=== PATIENT | female | born 2005 | race Caucasian/White ===

== ENCOUNTER 2025-03-02 14:24 | Outpatient (CLI) | payer BC, MEDICAID, SELFPAY ==
--- NOTE | 2025-03-02 16:05 | W.PM.LAC.MC ---
Consult Note - Mom Date of Visit Date of visit: 03/02/25 Reason for consultation: Assistance Needed Visit Code: Visit Patient's Information Phone number: [phone] : 1 Para: 1 Work Plans: return to work at some point, not sure when Delivery Information Delivery type: Vaginal Gestational Age: 40 Gestational Weight For Age: AGA Weight: 4.167 kg Discharge Weight: 3.941 kg Percentage weight loss: 5.5 Baby's Information Baby's Age at Visit: 7 days Baby's Provider or Clinic: [facility] Jaundice: No Past Experience Past Experience: No Current Frequency of Day Feedings: q2-3 hrs Frequency of Night Feedings: 4-6 hr stretch, very sleepy at night and hard to wake up Both Breasts: No Suck: strong Latch: shallow, painful Length of Time: 20-25 min Goals: 1-2 years Pumping Pumping: Yes Quantity Pumped: 4-5 oz Supplementing EBM Supplement: Yes (1.5-2 oz bottles occasionally) Formula Supplement: No Baby Elimination Number of Wet Diapers a Day: ea feeding Number of BM a Day: 6-8/day; [id number] Breast/Nipple Condition Breast Information: Breasts are symmetrical with rounded lower quadrants, intramammary distance is less than 1.5 inches. No erythema. Nipples are supple, everted prior to feeding. Breast Shape: Round and Firm Engorgement: No Maternal Nipple Condition - Left: Common Nipple Maternal Nipple Condition - Right: Common Nipple Sore Nipples: Yes Interventions for Sore Nipples: Soothies/Hydrogel Pads Baby Assessment Skin: Normal Tongue/frenulum: Normal/elastic Palate: Average Lips: Relaxed and Symmetrical Jaw Alignment: Symmetrical Mucosa: [place], moist Onsite Observation Pre-Feed weight: 3.986 kg Post-Feed weight: 4.024 kg Milk Transferred (mL): 38 Position: Football Attachment/latch-on achieved: With difficulty (to get a deep latch) Suck pattern: Suck burst and normal rest Swallow: Audible, consistent and Gulping (some when he gets on deeply) Behavior following feed: Alert, content Pre-Nursing Left Nipple: Within Normal Limits Pre-Nursing Right Nipple: Within Normal Limits Post-Nursing Left Nipple: Creased/Beveled (slight) Post-Nursing Right Nipple: Creased/Beveled (slight) Assessments/Interventions Assessments/Interventions: Jose G latched to mom's LEFT breast, latched multiple times to get a deep latch and stayed nursing for 13 minutes. Transferred 20 ml of milk before he came off on his own Jose G then latched to mom's RIGHT breast, latched shallowly and needed relatching again, and nursed for another 8 minutes. Transferred 18 ml of milk. Milk volume transferred: 38 ml and was content He was awakened for feeding at 2.5 hrs so this may not be the most indicative of a feeding Rebeccae does not open wide with tongue down for latching, more of a tongue sucking motion Suck exercises given to help encourage wide open mouth prior to bringing baby to the breast in addition to exercises they are already doing (guppy pose, figure 8 with hips, jaw massage) Education provided: Early feeding cues to maximize timing of latching, Asymmetric latch technique for wide/deep latch to increase milk, Transfer for baby and increase comfort for mom, Supply/demand nature of milk supply, Need for frequent stimulation/milk removal, Sore nipple treatment options, Pumping for milk management and Milk collection, storage Handouts Provided: Craniosacral therapist in [facility] as requested (Marycruz La) Feeding Plan: Breastfeed for 10-15 min on each breast, listening for active swallowing. Offer both breasts at each feeding for increase in milk intake, 10-15 min ea side vs 20-25 min on just one breast Discussed tips to help keep him awake and engaged in feeding and breast compression to increase milk transferred. Recommend wake baby every 3 hrs for feeding, even in the night, until he is back to birthweight. If he is too sleepy for BF at night, mom to pump and offer bottle to be sure he's not missing a feeding until he is back to birthweight. Follow-Up Suggested follow up: Appointment in 1 week Recommend baby be seen by provider for:: has clinic appt tomorrow 03/03/25 for weight check Time Spent Time spent with patient (min): 75
== END 2025-03-02 14:25 | disposition home or self-care (01) ==
PROVIDERS: Visit Provider Obstetrics & Gynecology
DX: Z39.1 Encounter for care and examination of lactating mother (principal)
CPT/HCPCS: G0463

== ENCOUNTER 2025-03-10 13:07 | Outpatient (CLI) | payer BC, MEDICAID, SELFPAY ==
--- NOTE | 2025-03-10 14:06 | W.PM.LAC.MF ---
Follow-Up Note: Mom Date of visit Date of visit: 03/10/25 Reason for consultation: Assistance Needed (follow up) Visit Code: Visit Delivery Information Delivery type: Vaginal Gestational Age: 40 Weight: 4.167 kg Last Weight: 3.986 kg Baby's Information Baby's name: Adriel Baby's Age at Visit: 15 days Baby's Provider or Clinic: [facility] Current Frequency of Day Feedings: every 2-3 hrs Frequency of Night Feedings: 4hr stretch x1, then every 2-3 Both Breasts: Yes (usually) Suck: strong Latch: sometimes painful, refusing the left side sometimes Length of Time: 10-12 minutes Pumping Pumping: Yes Quantity Pumped: get 5-7 oz 1-2x/day Supplementing EBM Supplement: Yes (will take an occasional bottle of 3-4 oz) Formula Supplement: No Baby Elimination Number of Wet Diapers a Day: ea feeding Number of BM a Day: 6+/day Breast/Nipple Assessment Breast/Nipple Assessment: Breasts are symmetrical with rounded lower quadrants, intramammary distance is less than 1.5 inches. No erythema. Nipples are supple, everted prior to feeding. Breast Shape: Round Engorgement: No Maternal Nipple Condition - Left: Common Nipple Maternal Nipple Condition - Right: Common Nipple Sore Nipples: No Onsite Observation Pre-feed weight: 4.217 kg (gain of 231 gms in 8 days) Post-Feed weight: 4.254 kg Milk Transferred (mL): 40 Pre-Nursing Left Nipple: Within Normal Limits Pre-Nursing Right Nipple: Within Normal Limits Post-Nursing Left Nipple: Within Normal Limits Assessments/Interventions Assessments/Interventions: Overall baby is feeding well; however over the last few days mom reports he is pushing her nipple out of his mouth more often and struggling to keep him on. No nipple pain, he's just not feeding as well. Gets a bottle maybe once a day. Babe initially fussy at the LEFT breast, popping on and off the breast as mom tried to latch in cradle hold. Mom shifted her position, put baby in cross cradle hold and moved him down nose across from nipple and he latched well and moved quickly into rhythmic suckling. Worked with mom on her hand positioning to allow a deeper latch as her fingers were very near her nipple; had her place them further back on her areola. Mom verbalized this was a better latch than she has had in a few days. He was offered the RIGHT breast and declined, no interest in feeding, laying peacefully in mother's arms. He had just fed 1.5 hrs prior to this for 11-12 minutes on mom's RIGHT breast. Discussed the deeper latch may help prevent him from trying to push her nipple out of his mouth as he did well staying latched here with the deeper latch. Discussed continuing to offer both breasts at each feeding, even if he needs a 5-10 minutes between sides. Education provided: Asymmetric latch technique for wide/deep latch to increase milk, Transfer for baby and increase comfort for mom, Supply/demand nature of milk supply, Need for frequent stimulation/milk removal, Alternative feeding methods (SNS, cup, finger feeding, bottling) and Pumping for milk management Follow-Up Suggested follow up: Appointment as needed Time Spent Time spent with patient (min): 60
== END 2025-03-10 13:08 | disposition home or self-care (01) ==
LOC: OB LAC 13:08
PROVIDERS: Visit Provider Obstetrics & Gynecology
DX: Z39.1 Encounter for care and examination of lactating mother (principal)
CPT/HCPCS: G0463

== ENCOUNTER 2025-03-27 05:56 | Emergency (ER) | payer BC, MEDICAID, SELFPAY ==
--- OUTSIDE RECORDS SUMMARY | 2025-03-04 03:00 | XMS_ITS ---
Author Organization [facility] Address [address] [place], [place] [phone] Care Team Providers Care Ota Name Role Phone Migration, Provider Unavailable Unavailable REASON FOR VISIT EMR-Ahsan Encounters Encounter Location Date Provider Diagnosis [facility] [address] [place], [place] [phone] 03/04/2025 Provider Migration Plan Of Treatment No Information Progress Notes * ASHLYN HAMMONDDOB:2005 ( 19 yo F)Acc No.[id number]:03/04/2025 Patient:?ASHLYN HAMMOND :2005???Age:19 Y???Sex:FemalePhone:[phone] Address:[facility] [address] [place], [address] Subjective: * Chief Complaints: * E MR-Ahsan * * Date:?
--- OUTSIDE RECORDS SUMMARY | 2025-03-05 03:00 | XMS_ITS ---
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 Name Role Phone Migration, Provider Unavailable Unavailable Allergies No Known Allergies REASON FOR VISIT [facility] Medications Medication SIG (Take, Route, Frequency, Duration) Notes Start Date End Date Status Naproxen 500 MG Tablet Take 1 pill by mouth BID X 1 Month (30d) Oral 12/09/2021ctive Social History Social History Additional DetailsCategorySocial InfoOptionsDetailsMigrated Social History Migrated Social History [Tobacco: Never smoker] Denies alcohol and rec drug use Shoe size: 8-8.5 Encounters Encounter Location Date Provider Diagnosis [facility] [address] [facility] [address] [place], [place] [phone] 03/05/2025 Provider Migration Plan Of Treatment No Information Progress Notes * ASHLYN HAMMONDDOB:2005 ( 19 yo F)Acc No.[id number]:03/05/2025 Patient:?ASHLYN HAMMOND :2005???Age:19 Y???Sex:FemalePhone:[phone] Address:[facility] [address] [place], [address] Subjective: * Chief Complaints: * E MR-Ahsan * Medical History: Patient denies any significant past medical history. Surgery: lip cut and tooth removal * Family History: M igrated Family History: : Patient denies any family history of CAD, HTN, DM, or CA. . * Social History: ???Migrated Social History:?Migrated Social History: [Tobacco: Never smoker]Denies alcohol and rec drug useShoe size: 8-8.5. * Medications: T akingNaproxen 500 MG Tablet Take 1 pill by mouth BID X 1 Month (30d) Oral Taking Naproxen 500 MG Tablet Take 1 pill by mouth BID X 1 Month (30d) Oral * Allergies: N .K.D.A. * * Date:?
[2025-03-27 05:57] VITALS: BP 117/79; PULSE 83; RESP 18; TEMP 35.8; O2SAT 98; BMI 36.9
--- OUTSIDE RECORDS SUMMARY | 2025-03-27 05:58 | XMS_ITS | Patient Health Record ---
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 Name Role Phone Migration, Provider Unavailable Unavailable Allergies No Known Allergies Reason For Referral No Information Medications Medication SIG (Take, Route, Frequency, Duration) Notes Start Date End Date Status Naproxen 500 MG Tablet Take 1 pill by mouth BID X 1 Month (30d) Oral 2Active Social History Social History Additional DetailsCategorySocial InfoOptionsDetailsMigrated Social History Migrated Social History [Tobacco: Never smoker] Denies alcohol and rec drug use Shoe size: 8-8.5 Problems Problem Type SNOMED Code ICD Code Onset Dates Problem Status W/U Status Risk Notes Problem Enthesopathy (96170622) Enthesop athy, unspecified (M77.9) 12/09/2021 Active confirmed ProblemPain in limb (76178404)Pain in right toe(s) (M79.674)12/09/2021ctive confirmed Encounters Encounter Location Date Provider Diagnosis [facility] [address] [facility] [address] [place], [place] [id number] 03/04/2025 Provider Migration [facility] [facility] [address] [place], [place] [id number]/23/2025Provider Migration Plan Of Treatment No Information Insurance Providers Payer Name Payer Address Payer Phone Subscriber Number Group Number Insured Name Patient Relationship to Insured Coverage Start Date Coverage End Date [employer] [place] [address] [place], [place] [id number] STEPHANYMichael Wuedward - patient is the [id number] 2021CBS [facility] [address] [place], [place] [id number], ALISESelf - patient is the [id number] 2021
--- OUTSIDE RECORDS SUMMARY | 2025-03-27 05:58 | XMS_ITS | Patient Health Record ---
Author Organization [facility] Address [address] [place], [place] [phone] Care Team Providers Care Loan Operations Manager Name Role Phone BROOKE BALES Primary Care Provider Reason For Referral No Information Medications Medication SIG (Take, Route, Frequency, Duration) Notes Start Date End Date Status Jdrramz-Cyylmo-Mehna Pertuss is 5-2.5-18.5 LF-MCG/0.5 as directed Intramuscular; Duration: 1 dose 10/28/2016Not-TakingMeningococcal A C Y&W-135 Conj -as directed Intramuscular 1 injection; Duration: 1 dose02/02/2017Not-TakingGardasil 9 -as directed Intramuscular one injection; Duration: 1 dose02/02/2017Not-TakingprednisoLONE 15 MG/5ML10 ml with food or milk in the morning Orally Once a day; Duration: 3 days 12/15/2017Not-TakingZithromax 200 MG/5ML12 ml x 1 day, then 6 ml QD x 4 days Orally Once a day; Duration: 6 days12/15/2017Not-TakingVoltaren 1 %apply 2 g to affected upper extremity joint area Transdermal 4 times daily02/04/2018Active Clindamycin Phosphate 1 %1 application to affected area after washing Externally Once a day; Duration: 14 days02/04/2018Active Problems Problem Type SNOMED Code ICD Code Onset Dates Problem Status W/U Status Risk Notes Problem Cough (71205945) Cough (R05) ActiveconfirmedProblemLipoprotein deficiency disorder (387942667)Low HDL (under 40) (E78.6)ActiveconfirmedProblemEnlargement of thyroid (3713123)Enlargement of thyroid (E04.9)ActiveconfirmedProblemDegeneration disease of medial meniscus of left knee (M23.304)Activeconfirmed Plan Of Treatment Pending Test Test Name Order Date MRI KNEE WO LT 02/22/2018 Urine Culture,Comprehensive 05/01/2016 Urinalysis, Complete 05/01/2016 CBC With Differential/Platelet 7 Lipid Panel 05/01/2016 Comp. Metabolic Panel (14) 05/01/2016 TSH Rfx on Abnormal to Free T4 7 Future Test Test Name Order Date Lipid Panel 11/03/2016 CMP (Complete Metabolic Panel (14)) 10/12 Insurance Providers Payer Name Payer Address Payer Phone Subscriber Number Group Number Insured Name Patient Relationship to Insured Coverage Start Date Coverage End Date [facility] [address] [place] [address] [phone] [id number] Luis Olivares 4 Medical (General) History Surgical History Surgery Date(Month/Year) None
--- OUTSIDE RECORDS SUMMARY | 2025-03-27 05:58 | XMS_ITS | Clinical Summary ---
Author Organization [facility] Address [address] [place] [id number] Care Team Providers Care Marketing Automation Specialist Name Role Phone Pcp, No Primary Care Provider Unavailabl e Allergies No known active allergies Medications MedicationSigDispense QuantityRefillsLast FilledStart DateEnd DateStatus 25/iron fum/folic/dha (-1 ORAL) Take by mouth.Active Breast Pump Purchase Indications:, unspecified gestational age (HC)Electric breast pump for home use. Reason for need: breast feeding. Length of need: 99 months (lifetime use) 1 Each 5Active ibuprofen (ADVIL; MOTRIN) 600 mg tablet Indications:Vaginal delivery (HC)Take 1 Tablet (600 mg) by mouth every 6 hours. Maximum of 3200 mg in 24 hours. 30 Tablet 5Active Additional Information Patient not taking.Reported on 03/10/2025 Active Problems ProblemNoted DateDiagnosed DateVaginal marexgrc60/13/2024Fpgjcpdah47/22/2025 Overview (02/21/2025): G1 FOB: Masoud Dating criteria: LMP c/w FTU Rh: + Ab: neg Rubella: imm Aneuploidy screening: declines Carrier screening: declines Anatomy Scan: wnl, placenta anterior, EFW 89%tile -> f/u growth US ordered 1 hr GTT: 110, passed Tdap: s/p 11/29 Flu: s/p 01/17 RSV: s/p 10 Presentation at 36 wks: cephalic GBS: neg PPBC: unsure Last SVE 1/30/-3 Delivery planning: IOL scheduled for 11 PM (rescheduled from 02/26 PM) issues: Teen - social work consult placed but declines their referral - it the patient reconsiders, can either place an Amb Consult to Care Management Service #[phone] or call Care Management Intake at [phone]. macrosomia- EFW at 30w and 36w 98%tile Adjustment reaction with anxiety and depression- following with mental health sr solutions consultant BMI 31 (185lb)- rec 11-20 lb weight gain. Due to addit'l RF rec LDASA Resolved Problems ProblemNoted DateDiagnosed DateResolved DateShoulder dystocia during labor and wljekbyr87 Encounters DateTypeDepartmentCare CqwaKvzsvbosfyd18/28/2025 10:05 AM CSTOffice Visit [facility] [address] [place] [address] Mckinley Bernal MD Wrist Pain/problem (Two weeks before having baby both middle fingers would lock up-now since havingbaby her right wrist hurts all the time with any movement using thumb)03/10/20254336Pxktqv94/14/2288Daabig17/13/2025 8:32 AM CSTAnesthesia Event [facility] [address] [place] [address] Lb Phillips MD 02/22/2025 7:28 PM TOP CLEANER - 02/25/2025 12:58 PM CSTHospital Encounter [facility] [address] [place] [address] Consuelo Newton DO Thorson, Ashley Ellen, MD Vaginal delivery (HC) (Primary Dx) Discharge Disposition: Home Self Care02/22/20258029Xgsehc06/11/2025 3:15 PM CSTOB Encounter [facility] [address] [place] [address] Consuelo Newton DO Care (39w5d, no concerns)02/21/20250396Wqdqpl48/07/1722Xpdhbh74/04/2025 3:15 PM CSTOB Encounter [address] [place] [address] Consuelo Newton, DO Care (38w5d, no concerns, wants to discuss her induction date) 02/14/20251862Rvhfdn52/02/2025 12:06 AM CDT - 02/12/2025 1:30 AM CDTHospital Encounter [facility] [address] [place] [address] Radha Tong MD Discharge Disposition: Home Self Care02/12/20251170Anqcwh64/31/2025Telephone [address] [place] [address] Consuelo Newton, DO Questions (Induction )02/09/20259998Ytddai31/28/2025 3:15 PM CDTOB Encounter [address] [place] [address] Consuelo Newton, DO Care (37w5d, no concerns)02/07/20259912Ksxjqo44/23/0048Ozgdrg53/21/2025 3:15 PM CDTOB Encounter [address] [address] Consuelo Newton, DO Care (36w5d, no concerns)01/31/20257617Akeghm65/19/5772Uzbdwm00/16/2025 3:30 PM CDT - 01/26/2025 11:59 PM CDTHospital Encounter [facility] [address] [place] [address] Consuelo Newton, DO macrosomia during , antepartum, single or unspecified fetus (HC) 01/26/20259140Pcuaua27/15/2025 9:55 AM CDTTelemedicine [facility] [address] [place] [address] Leslie Macias LICSW Individual Therapy; Telehealth; [facility] Plan01/21/20256485Apwcig81/07/2025 3:30 PM CDTOB Encounter [facility] [address] [place] [address] Consuelo Newton, Care (34w5d, no concerns)01/16/2025 10:16 PM CDT - 01/16/2025 11:32 PM CDTHospital Encounter [facility] [address] [place] [address] Trever Peña MD Discharge Disposition: Home Self Care01/16/20256345Trptws70/06/2025Nurse Triage [facility] [address] [place] [address] Consuelo Newton, DO (Decreased movement)01/10/2025 3:15 PM CDTOB Encounter [facility] [address] [place] [address] Consuelo Newton, DO Care (33w5d, still having some of the lower pains, can never get the swelling out of her ankles)01/09/20253869Vlslpl98/17/2025 9:00 AM CDTTelemedicine [place] [id number] [place] [address] Leslie Macias LICSW Mental Health Intake; Kkkijxxuyb84/16/2025 3:15 PM CDTOB Encounter [facility] [address] [place] [address] Consuelo Newton, DO Care (31w5d, pain in her lower abdomen all day when she moves) 12/27/2024Travelfrom Last 3 Months Immunizations ImmunizationAdministration DatesNext DueCOVID-19 VACCINE SPIKEVAX (MODERNA 50MCG/0.5ML) 12YO+ PFS04/14/2024INFLUENZA, IIV3 PF (AGE >= 6 MO)01/17/2025 Influenza, CCIIV3 (Age >=6 MO) (Egg Free)04/14/2024RSV, Bivalent Vaccine Reconstituted (Abrysvo 120MCG/0.5mL)01/17/2025Tdap11/29/2024 Family History Medical HistoryRelationNameCommentsNo Known ProblemsFatherpre diabetesMother RelationNameStatusCommentsFatherAliveMotherAlive Social History Tobacco UseTypesPacks/DayYears UsedDateSmoking Tobacco: NeverPassive Smoke Exposure: CurrentSmokeless Tobacco: Never Tobacco Cessation:Counseling Given: Not Answered Alcohol UseStandard Drinks/WeekCommentsNever0 (1 standard drink = 0.6 oz pure alcohol)PHQ-2AnswerDate RecordedPHQ-2 TOTAL [id number] Connections AnswerDate RecordedDo you often feel lonely or isolated from those around you?0 02/22/2025lcohol UseAnswerDate RecordedHow often do you have a drink containing alcohol?How many drinks containing alcohol do you have on a typical day when you are drinking?How often do you have five or more drinks on one occasion?Financial Resource StrainAnswerDate Recorded Difficulty of Paying Living Xujnukey280/12/2025Difficulty of Paying Living ExpensesNot on file02/22/2025Food InsecurityAnswerDate RecordedDo you worry your food will run out before you are able to buy more?Transportation NeedsAnswerDate RecordedDoes lack of transportation keep you from medical appointments?Does lack of transportation keep you from work, meetings or getting things that you need?Housing StabilityAnswerDate Recorded What is your housing situation today?Interpersonal SafetyAnswerDate RecordedAre you being hit, kicked, pushed or yelled at (see row info)?No 02/23/2025Interpersonal Safety Abuse 12 - 18Not on file02/23/2025Interpersonal Safety Ambulatory VulnerabilityNot on file02/23/2025UtilitiesAnswerDate Recorded Do you have trouble paying for utilities (for example, heat, electricity, water, phone)?CommentsNoSex and Gender InformationValueDate Recorded Sex Assigned at BirthNot on fileLegal IuwEgoazn54/12/2024 3:05 PM CDTGender IdentityNot on fileSexual OrientationNot on file Obstetrics History GravidaParaTermPretermABIABSABEctopicMultipleLivingLive [id number] GATotal LaborLabor/2nd/6uiYwrfjjHvmUkzkPdvtEHSKcpG0Q7YclpOdcu76/13/2270Psxp21g8w 0h 04m0h 04m4.17 kg (9 lb 3.1 oz)MVag-KwjggYgdzatniJlzwhp00Xi Consuelo Perez, DOComplications:Shoulder DystociaDelivery Location:Hospital ([facility]) Summary Episode DatesNumber of FetusesEstimated Date of Xsvqunrd21/22/2025 - Present (03/27/2025) (set by Monika Eastman RN on 08/02/2024 based on Alternate HOWARD Entry)Based OnEDDGA DiffLast Menstrual Period on 05/19/2024 02/23/2025SameUltrasound on 5104/23/2024+2dGA:80p9qVvnavxgks HOWARD Entry 02/23/2025WorkingPregnancy:SingletonFetal sex:MaleSupport person:Masoud Berman Delivery PlansPost-Delivery PlansPlanned delivery method:VaginalFeeding intentions:Breast MilkPlanned anesthesia:EpiduralCircumcision requested:Provider PerformedAcceptable blood products:AllPregravid WeightHeightTWG (As of 03/27/2025)Pregravid BMI1.625 m (5' 3.98) Date GA Fund Present FHR Mvmt BP Weight Edema Alb Glu Ket Dil/ Eff/Sta 5 11w0d Inpatient data not displayed here. See encounter summary. 5 19w2d Inpatient data not displayed here. See encounter summary. 5 21w4d Inpatient data not displayed here. See encounter summary. 5 26w1d Inpatient data not displayed here. See encounter summary. 5 29w4d Inpatient data not displayed here. See encounter summary. 5 30w5d Inpatient data not displayed here. See encounter summary. 5 34w4d Inpatient data not displayed here. See encounter summary. 5 36w0d Inpatient data not displayed here. See encounter summary. 5 38w3d Inpatient data not displayed here. See encounter summary. 5 40w0d Inpatient data not displayed here. See encounter summary. 5 40w0d Inpatient data not displayed here. See encounter summary. 5 40w0d Inpatient data not displayed here. See encounter summary. Notes Progress Notes - Hospital En counter - 02/25/2025 - GA:40w0d 02/25/2025 - 40w0d - Kojo Lopez RN Vaginal Discharge Data: Vital signs stable, afebrile and assessments within normal limits. Tolerating activity and diet. Voiding without difficulty. Pain within patient determined acceptable limits. Perineum appears to be healing well. Positive attachment behaviors observed. Discharge outcomes on the care plan met. Action: Review of care plan, teaching sheet and discharge instructions done with patient. Response: Discharged at 1258 via Ambulatory CLEANER 02/25/2025 - 40w0d - Edita Palacios RN Problem: PAIN/COMFORT Goal: PATIENT'S PAIN IS </= STATED ACCEPTABLE COMFORT GOAL. Outcome: Progressing Note: Pt pain well controlled with scheduled medications. Pt opting to not take as scheduled and will ask for it when needed. Pt also using tucks and ice packs for perineum. Pt vital signs within normal range. Pt fundus firm and bleeding scant. Pt ambulating and voiding without difficulty. CLEANER 02/24/2025 - 40w0asad - Jam Avendaño MD Day 1: Vaginal Delivery Date: 02/24/2025 Subjective: Kamini Hammond is overall doing well, no acute complaints. Lochia light. Pain is well controlled. Tolerating a normal diet. Denies headache, vision changes, chest pain, palpitations, lightheadedness. Objective: BP 112/66 Pulse (!) 102 Temp 99 ??F (37.2 ??C) Resp 16 Wt 104.8 kg (231 lb 1.9 oz) LMP 05/19/2024 SpO2 97% Unknown General: NAD, A&O Abdomen: +BS, soft, nontender to palpation, fundus firm below the umbilicus Extremities: warm, nontender Assessment/Plan: Kamini Hammond is a 19 y.o. day #1 s/p care - doing well - Planned discharge tomorrow Jam Avendaño MD CLEANER 02/23/2025 - 40w0Consuelo Nina DO Patient reports contractions are 5/10 in intensity. Not yet ready for epidural. SVE 3.5/80/-2. AROMperformed with scant amount of clear fluid. FHT Category 1. Will monitor contractions and start Pitocin if needed. Consuelo Newton DO 02/23/25 0740 Addendum: Patient s/p epidural placement. FSE placed as decelerations noted. Decels initially appeared to be early decels. However now difficult to fully assess FHT as could be having tachycardia with recurrent variable decelerations or accelerations with marked variability. Tachysystole noted and will give 1 dose of IV Terbutaline. SVE 6/80/-1. We did discuss potential need for and patient is agreeable if necessary. Consuelo Newton DO 02/23/2025 1000 Addendum: Contractions have decreased in frequency to q2-5 minutes. FHT are now Category 1. Patient is comfortable with epidural and is sleeping now. status is reassuring. Consuelo Newton DO 02/23/25 1115 Addendum: Patient is now complete and pushing. Consuelo Newton DO 02/23/25 1700 CLEANER CLEANER CLEANER CLEANER 02/23/2025 - 40w0d - Joyce Cifuentes RN Kamini worrell 39 6/7 presents to the center at 1928 for a scheduled IOL. Pt states +fm, no LOF, or vaginal bleeding. States she has been cx. aware pt is here. Joyce Cifuentes RN .................... 02/22/2025 8:41 PM CLEANER Progress Notes - OB Encounte r - 02/21/2025 - GA:39w5d 02/21/2025 - 39w5d - Consuelo Pascual DO Care Visit Subjective Care (39w5d, no concerns) HISTORY OF PRESENT ILLNESS Patient is a 19 y.o. F at 39w5d here for return OB visit. She is doing well today. She denies any vaginal bleeding, loss of fluid, or regular contractions. She notes good movement. desireslactation consult REVIEW OF SYSTEMS Obtained and is negative other than stated in the HPI. Objective PHYSICAL EXAMINATION Vitals: 02/21/25 1531 BP: 126/86 Cuff Site: Left Arm Position: Sitting Cuff Size: Adult Large Pulse: (!) 114 Weight: 104.8 kg (231 lb 1.6 oz) There is no height or weight on file to calculate BMI. General: No acute distress alert and oriented. Abdomen: Soft, gravid, nontender to palpation. Pelvic: SVE: 1.5//-3, membrane stripping performed FHR: 140s bpm Extremities: Warm, nontender, no edema. Assessment & Plan 1. , unspecified gestational age (HC) (Primary) G1 FOB: Masoud Dating criteria: LMP c/w FTU Rh: + Ab: neg Rubella: imm Aneuploidy screening: declines Carrier screening: declines Anatomy Scan: wnl, placenta anterior, EFW 89%tile -> f/u growth US ordered 1 hr GTT: 110, passed Tdap: s/p 8 Flu: s/p 10/7 RSV: s/p 10/7 Presentation at 36 wks: cephalic GBS: neg PPBC: unsure Last SVE 3 Delivery planning: IOL scheduled for 11/12 PM (rescheduled from 02/26 PM) - Patient is worried about breast-feeding after and request referral to decorator consultant. Referral placed today. -Membrane stripping performed today. - Reviewed induction of labor process. Reviewed this is an elective induction. Reviewed potential risks including risk of emergency . Induction of labor scheduled for tomorrow evening. issues: Teen - social work consult placed but declines their referral - it the patient reconsiders, can either place an Amb Consult to Care Management Service #[phone] or call Care Management Intake at [phone]. macrosomia- EFW at 30w and 36w 98%tile Adjustment reaction with anxiety and depression- following with mental health sr solutions consultant BMI 31 (185lb)- rec 11-20 lb weight gain. Due to addit'l RF rec LDASA Orders: - AMB REFERRAL TO SERVICES; Future RTC: Consuelo Newton DO CLEANER Progress Notes - OB Encounte r - 02/14/2025 - GA:38w5d 02/14/2025 - 38w5d - Consuelo Pascual DO Care Visit Subjective Care (38w5d, no concerns, wants to discuss her induction date) HISTORY OF PRESENT ILLNESS Patient is a 19 y.o. F at 38w5d here for return OB visit. She is doing well today. She denies any vaginal bleeding, loss of fluid, or contractions. She notes good movement. Patient was seen in OB triage 2 days for elevated BP at home. Took BP due to LE edema. BP at home 146/93 and 150/98. BP in triage normotensive. Patient denies headache, vision changes or upper abdominal pain. REVIEW OF SYSTEMS Obtained and is negative other than stated in the HPI. Objective PHYSICAL EXAMINATION Vitals: 02/14/25 1523 BP: 124/82 Cuff Site: Right Arm Position: Sitting Cuff Size: Adult Large Pulse: (!) 112 Weight: 104.1 kg (229 lb 6.4 oz) There is no height or weight on file to calculate BMI. General: No acute distress alert and oriented. Abdomen: Soft, gravid, nontender to palpation. Pelvic: 140/-3, membrane stripping attempted but difficult due to posterior cervix FHR: 150s bpm Extremities: Warm, nontender, trace b/l edema. Assessment & Plan 1. , unspecified gestational age (HC) (Primary) G1 FOB: Masoud Dating criteria: LMP c/w FTU Rh: + Ab: neg Rubella: imm Aneuploidy screening: declines Carrier screening: declines Anatomy Scan: wnl, placenta anterior, EFW 89%tile -> f/u growth US ordered 1 hr GTT: 110, passed Tdap: s/p 11/29 Flu: s/p 01/17 RSV: s/p 01/17 Presentation at 36 wks: cephalic GBS: neg PPBC: unsure - patient's IOL scheduled for 16 PM. She states today she desires to move this to 02/22/25 PM instead. L&D called and will try to accommodate this but will likely need additional staffing. Induction of labor orders placed. Will plan for cervical ripening overnight. On-call OB provider notified issues: Teen - social work consult placed but declines their referral - it the patient reconsiders, can either place an Amb Consult to Care Management Service #[phone] or call Care Management Intake at [phone]. macrosomia- EFW at 30w and 36w 98%tile Adjustment reaction with anxiety and depression- following with mental health sr solutions consultant BMI 31 (185lb)- rec 11-20 lb weight gain. Due to addit'l RF rec LDASA RTC: 1 week Consuelo Newton DO CLEANER Progress Notes - Hospital En counter - 02/12/2025 - GA:38w3d 02/12/2025 - 38w3d - Edita Viera RN Pt given verbal and discharge instructions, pt verbalized understanding and denied questions. Pt ambulated off of unit with belongings in hand accompanied by SO. 02/12/2025 - 38w3d - Eidta Palacios RN Dr Tong called and informed of pt arrival and concerns. Discussed EFM, pt vitals and pt did bring her blood pressure cuff for evaluation, cuff is meant for up to 42cm and pt arm measures 44 cm. Ptblood pressure with her cuff here is 118/80 and 124/80. Pt states she has felt some pains that may or may not be ctx, nothing she was timing. Pt noted to have 1 ctx while monitoring. Pt states she has an appointment on Thursday. Pt states no other concerns and pt feels comfortable going home. Per Dr Tong pt to discharge home and be educated on compression socks as well as avoiding prolonged periods of standing or sitting. 02/12/2025 - 38w3d - Edita Palacios RN Pt called at 2247 stating she was having increased swelling today that hasn't gotten better so she was checking her blood pressure at home. She reports 2 readings that were 140's/90's. Pt questioned and reviewed, no concerns for preeclampsia with prior visits. Pt states she had headaches a few times this week, none today, that got better with the medication she was given for them. Pt denies vision changes, chest pain, SOB or right sided upper abd pain. Pt states she has noticed some cramping/ctx here and there but nothing she is timing. Pt denies bleeding or leaking of fluid. Pt states she has been feeling baby move recently but unsure of earlier because she worked today. She states she is a [employer]INE [employer]. Pt advised that she could come in if she felt like she wanted to be evaluated otherwise she could stay home and monitor for now. Pt states she wants to come in to be checked out. Pt states she live in [place] and she will be here in about an hour. Pt instructed to bring her blood pressure cuff with for comparison. 0006 pt arrived with SO and ambulated to rm 208. Pt up to void and change into gown. Progress Notes - OB Encounte r - 02/07/2025 - GA:37w5d 02/07/2025 - 37w5d - Consuelo Pascual DO Care Visit Subjective Care (37w5d, no concerns) HISTORY OF PRESENT ILLNESS Patient is a 19 y.o. F at 37w5d here for return OB visit. She is doing well today. She denies any vaginal bleeding, loss of fluid, or regular contractions. She notes good movement. REVIEW OF SYSTEMS Obtained and is negative other than stated in the HPI. Objective PHYSICAL EXAMINATION Vitals: 02/07/25 1530 BP: 130/78 Cuff Site: Right Arm Position: Sitting Cuff Size: Adult Large Pulse: 82 Weight: 104.2 kg (229 lb 11.2 oz) There is no height or weight on file to calculate BMI. General: No acute distress alert and oriented. Abdomen: Soft, gravid, nontender to palpation. Pelvic: SVE 1/30/-3 FHR: 130s bpm Extremities: Warm, nontender, no edema. Assessment & Plan 1. , unspecified gestational age (HC) (Primary) FOB: Masoud Dating criteria: LMP c/w FTU Rh: + Ab: neg Rubella: imm Aneuploidy screening: declines Carrier screening: declines Anatomy Scan: wnl, placenta anterior, EFW 89%tile -> f/u growth US ordered 1 hr GTT: 110, passed Tdap: s/p 11/29 Flu: s/p 01/17 RSV: s/p 01/17 Presentation at 36 wks: cephalic GBS: neg PPBC: unsure Last SVE - Patient advised cervical exam unchanged today. -Patient still desires induction of labor but now states she desires a 40-week induction of labor instead of a 39-week induction of labor. Will request 11/16 p.m. and plan for cervical ripening - given 36w packet issues: Teen - social work consult placed but declines their referral - it the patient reconsiders, can either place an Amb Consult to Care Management Service #[phone] or call Care Management Intake at [phone]. macrosomia- EFW at 30w and 36w 98%tile Adjustment reaction with anxiety and depression- following with mental health sr solutions consultant BMI 31 (185lb)- rec 11-20 lb weight gain. Due to addit'l RF rec LDASA RTC: 1 week Consuelo Newton DO Progress Notes - OB Encounte r - 01/31/2025 - GA:36w5d 01/31/2025 - 36w5d - Consuelo Pascual DO Care Visit Subjective Care (36w5d, no concerns) HISTORY OF PRESENT ILLNESS Patient is a 19 y.o. F at 36w5d here for return OB visit. She is doing well today. She denies any vaginal bleeding, loss of fluid, or contractions. She notes good movement. REVIEW OF SYSTEMS Obtained and is negative other than stated in the HPI. Objective PHYSICAL EXAMINATION Vitals: 01/31/25 1533 BP: 118/72 Cuff Site: Right Arm Position: Sitting Cuff Size: Adult Large Pulse: (!) 108 Weight: 103.6 kg (228 lb 6.4 oz) There is no height or weight on file to calculate BMI. General: No acute distress alert and oriented. Abdomen: Soft, gravid, nontender to palpation. Pelvic: GBS obtained, SVE 05/12/3 FH: 130s cm Extremities: Warm, nontender, no edema. US OB FOLLOW UP ANY TRI SINGLE TA Narrative: For Patients: As a result of the Cures Act, medical imaging exams and procedure reports are released immediately into your electronic medical record. You may view this report before your referring provider. If you have questions, please contact your health care provider. INDICATION: Check growth TECHNIQUE: Ultrasound OB pelvis transabdominal. Real-time davila-scale imaging of the fetus was performed. COMPARISON: 12/20/2024 and 08/04/2024 FINDINGS: Sonographic imaging demonstrates a single living intrauterine gestation. Fetus demonstrates a regular cardiac rate of 140 beats per minute. Fetus has a cephalic orientation. The placenta lies anterior without evidence of placenta previa. Amniotic fluid volume appears normal. Single deepest verticalpocket: 7.4 cm. The composite ultrasound gestational age is calculated at 38 weeks 6 days with an estimated sonographic due date of 02/03/2025. The estimated weight is 3710 grams which lies at the 98%. The following biometric measurements were obtained: Biparietal diameter: 9.5 cm, 38 weeks 6 days,< 99 percentile. Head circumference: 33.8 cm, 38 weeks 6 days, 84th percentile. Abdominal circumference: 36.3 cm, 40 weeks 2 days, greater than 98 percentile. Femur length: 7.2 cm, 37 weeks 0 days, 69th percentile. Impression: 1. Current ultrasound dating 38 weeks 6 days, HOWARD 02/03/2025. weight is at the 98th percentile. 2. LMP 05/19/2024. Dating by LMP 36 weeks 6 days. Dictated by Skye Padilla MD @ 01/27/2025 7:46:50 AM (Electronically Signed) Assessment & Plan 1. , unspecified gestational age (HC) (Primary) G1 FOB: Masoud Dating criteria: LMP c/w FTU Rh: + Ab: neg Rubella: imm Aneuploidy screening: declines Carrier screening: declines Anatomy Scan: wnl, placenta anterior, EFW 89%tile -> f/u growth US ordered 1 hr GTT: 110, passed Tdap: s/p 11/29 Flu: s/p 01/17 RSV: s/p 01/17 Presentation at 36 wks: cephalic PPBC: unsure - GBS obtained today -Reviewed growth ultrasound showing persistent macrosomia - Labor precautions reviewed - Patient desires 39-40 week induction of labor. She will look at dates with partner and will discuss further at next visit. issues: Teen - social work consult placed but declines their referral macrosomia- EFW at 30w and 36w 98%tile Adjustment reaction with anxiety and depression- following with mental health sr solutions consultant Headache, resolved- Rx reglan Craving ice- iron studies and hb wnl BMI 31 (185lb)- rec 11-20 lb weight gain. Due to addit'l RF rec LDASA Orders: - VAGINAL/RECTAL OB STREP PCR; Future At next visit: schedule IOL RTC: 1 week Consuelo Newton DO Progress Notes - OB Encounte r - 01/17/2025 - GA:34w5d 01/17/2025 - 34w5d - Consuelo Pascual DO Care Visit Subjective Care (34w5d, no concerns) HISTORY OF PRESENT ILLNESS Patient is a 19 y.o. F at 34w5d here for return OB visit. She is doing well today. She denies any vaginal bleeding, loss of fluid, or contractions. She notes good movement. Was seen in triage yesterday for decreased FM; NST reactive. REVIEW OF SYSTEMS Obtained and is negative other than stated in the HPI. Objective PHYSICAL EXAMINATION Vitals: 01/17/25 1535 BP: 120/74 Cuff Site: Left Arm Position: Sitting Cuff Size: Adult Large Pulse: (!) 102 Weight: 102 kg (224 lb 14.4 oz) There is no height or weight on file to calculate BMI. General: No acute distress alert and oriented. Abdomen: Soft, gravid, nontender to palpation. FHR: 150s bpm Extremities: Warm, nontender, no edema. Assessment & Plan 1. , unspecified gestational age (HC) (Primary) G1 FOB: Masoud Dating criteria: LMP c/w FTU Rh: + Ab: neg Rubella: imm Aneuploidy screening: declines Carrier screening: declines Anatomy Scan: wnl, placenta anterior, EFW 89%tile -> f/u growth US ordered 1 hr GTT: 110, passed Tdap: s/p 11/29 PPBC: unsure - Agreeable to RSV and flu vaccines today -Growth ultrasound scheduled for next week -Reviewed expectations for next visit issues: Teen - social work consult placed but declines their referral - it the patient reconsiders, can either place an Amb Consult to Care Management Service #[phone] or call Care Management Intake at [phone]. macrosomia- EFW at 30w 98%tile Adjustment reaction with anxiety and depression- following with mental health sr solutions consultant Headache, resolved- Rx reglan Craving ice- iron studies and hb wnl BMI 31 (185lb)- rec 11-20 lb weight gain. Due to addit'l RF rec LDASA 2. Need for prophylactic vaccination and inoculation against influenza - FluLaval Single Dose Syringe FLU VACCINE =>6 MO PRESERV FREE TRIVALENT IIV3 IM [703600] 3. Need for RSV immunization - (Abrysvo) RSV vaccine 120mg/0.5mL Bivalent [[id number]] - for 50 yo+ or 32-36 weeks EGA At next visit: review growth US 01/26, GBS, SVE RTC: 2 weeks Consuelo Newton DO Progress Notes - Hospital En counter - 01/16/2025 - GA:34w4d 01/17/2025 - 34w5d - Radha Stewart, RN Kamini is a 19yo at 34w4d presents to Center from home with reports of decreased movement. Denies cramping, bleeding, or leaking of fluid. Last ate at 2014. Has felt a tiny kick >2hours ago; last felt baby was active last night. Today, patient did some light cleaning, walked through [employer], and took a nap. No strenuous activity. States she works in a [employer] and is on her feet for eight + hours; next shift is scheduled for tomorrow. 2314: Discussed patient and NST with Dr. Peña. Ok to discharge home. Patient has an appointment tomorrow afternoon with Dr. Parikh. Reviewed warning signs of when to return. Patient was given number to Center. Discharged to home at 2332. Radha Stewart RN .................... 01/16/2025 11:51 PM Progress Notes - OB Encounte r - 01/10/2025 - GA:33w5d 01/10/2025 - 33w5d - Consuelo Pascual DO Care Visit Subjective Care (33w5d, still having some of the lower pains, can never get the swelling out of her ankles) HISTORY OF PRESENT ILLNESS Patient is a 19 y.o. F at 33w5d here for return OB visit. She is doing well today. She denies any vaginal bleeding, loss of fluid, or contractions. She notes good movement. He reports occasional abdominal cramping/pelvic pain. Has been worse since she injured her hip with volleyball. Also complains of lower extremity swelling. Is wearing compression socks. REVIEW OF SYSTEMS Obtained and is negative other than stated in the HPI. Objective PHYSICAL EXAMINATION Vitals: 01/10/25 1533 BP: 116/70 Cuff Site: Right Arm Position: Sitting Cuff Size: Adult Large Pulse: 98 Weight: 101.8 kg (224 lb 8 oz) There is no height or weight on file to calculate BMI. General: No acute distress alert and oriented. Abdomen: Soft, gravid, nontender to palpation. FHR: 130s bpm Extremities: Warm, nontender, + 2 nonpitting edema, no erythema Assessment & Plan 1. , unspecified gestational age (HC) (Primary) G1 FOB: Masoud Dating criteria: LMP c/w FTU Rh: + Ab: neg Rubella: imm Aneuploidy screening: declines Carrier screening: declines Anatomy Scan: wnl, placenta anterior, EFW 89%tile -> f/u growth US ordered 1 hr GTT: 110, passed Tdap: s/p 11/29 PPBC: unsure - Edema consistent with edema of . Advised to buy tighter compression socks and to elevateher feet when able specially the end of the day. No evidence of DVT on exam. BP today WNL - growth US 01/26 issues: Teen - social work consult placed but declines their referral - it the patient reconsiders, can either place an Amb Consult to Care Management Service #[phone] or call Care Management Intake at [phone]. macrosomia- EFW at 30w 98%tile Adjustment reaction with anxiety and depression- following with mental health sr solutions consultant Headache, resolved- Rx reglan Craving ice- iron studies and hb wnl BMI 31 (185lb)- rec 11-20 lb weight gain. Due to addit'l RF rec LDASA At next visit: Review growth ultrasound RTC: 3 weeks, okay to skip visits until 36 weeks if desired Consuelo Newton DO Progress Notes - OB Encounte r - 12/27/2024 - GA:31w5d 12/27/2024 - w5d - Consuelo Pascual DO Care Visit Subjective Care (31w5d, pain in her lower abdomen all day when she moves) HISTORY OF PRESENT ILLNESS Patient is a 18 y.o. F at 31w5d here for return OB visit. She is doing well today. She denies any vaginal bleeding, loss of fluid, or contractions. She notes good movement. Patient is complaining of some lower abdominal pain when she moves. This began today after working.Pain does sometimes radiate to her hips. She has been wearing a support belt which does not seem to be helping her today. Has not taken any Tylenol or tried any other relief. REVIEW OF SYSTEMS Obtained and is negative other than stated in the HPI. Objective PHYSICAL EXAMINATION Vitals: 12/27/24 1522 BP: 106/74 Cuff Site: Right Arm Position: Sitting Cuff Size: Adult Large Pulse: 90 Weight: 100 kg (220 lb 6.4 oz) There is no height or weight on file to calculate BMI. General: No acute distress alert and oriented. Abdomen: Soft, gravid, nontender to palpation. FHR: 130s bpm Extremities: Warm, nontender, no edema. Assessment & Plan 1. , unspecified gestational age (HC) (Primary) G1 FOB: Masoud Dating criteria: LMP c/w FTU Rh: + Ab: neg Rubella: imm Aneuploidy screening: declines Carrier screening: declines Anatomy Scan: wnl, placenta anterior, EFW 89%tile -> f/u growth US ordered 1 hr GTT: 110, passed Tdap: s/p 11/29 PPBC: unsure - Due to macrosomia, follow-up growth ultrasound has been ordered for 36- weeks. Patient advised to schedule -Suspect patient's discomfort is musculoskeletal in nature. We discussed symptomatic relief in including rest after working, warm baths, Tylenol use. She should let me know if pain does notimprove issues: Teen - social work consult placed but declines their referral - it the patient reconsiders, can either place an Amb Consult to Care Management Service #[phone] or call Care Management Intake at [phone]. macrosomia- EFW at 30w 98%tile Adjustment reaction with anxiety and depression- following with mental health sr solutions consultant Headache, resolved- Rx reglan Craving ice- iron studies and hb wnl BMI 31 (185lb)- rec 11-20 lb weight gain. Due to addit'l RF rec LDASA 2. macrosomia during , antepartum, single or unspecified fetus (HC) - US OB FOLLOW UP ANY TRI SINGLE TA; Future At next visit: review growth US RTC: 2 weeks Consuelo Newton DO Progress Notes - OB Encounte r - 12/13/2024 - GA:29w5d 12/13/2024 - 29w5d - Consuelo Pascual DO Care Visit Subjective Follow Up (29w 5d/ER yesterday, Much better today, baby is moving really well/) HISTORY OF PRESENT ILLNESS Patient is a 18 y.o. F at 29w5d here for return OB visit. She is doing well today. She denies any vaginal bleeding, loss of fluid, or contractions. States mood is doing okay. Patient was seen in OB triage yesterday due to decreased movement. NST was reactive. She notes good movement today. REVIEW OF SYSTEMS Obtained and is negative other than stated in the HPI. Objective PHYSICAL EXAMINATION Vitals: 12/13/24 1533 BP: 108/74 Cuff Site: Right Arm Position: Sitting Cuff Size: Adult Regular Long Pulse: (!) 125 SpO2: 98% Weight: 98 kg (216 lb) There is no height or weight on file to calculate BMI. General: No acute distress alert and oriented. Abdomen: Soft, gravid, nontender to palpation. FHR: 130s bpm Extremities: Warm, nontender, no edema. Assessment & Plan 1. , unspecified gestational age (HC) (Primary) G1 FOB: Masoud Dating criteria: LMP c/w FTU Rh: + Ab: neg Rubella: imm Aneuploidy screening: declines Carrier screening: declines Anatomy Scan: wnl, placenta anterior, EFW 89%tile -> f/u growth US ordered 1 hr GTT: 110, passed Tdap: s/p 11/29 PPBC: unsure - Due to macrosomia, she has a follow-up growth ultrasound scheduled for next week - f/u with [facility] tomorrow - Reviewed movement precautions issues: Teen - social work consult placed but declines their referral - it the patient reconsiders, can either place an Amb Consult to Care Management Service #[phone] or call Care Management Intake at [phone]. macrosomia- EFW at 26w 91%tile Adjustment reaction with anxiety and depression- following with mental health sr solutions consultant Headache, resolved- Rx reglan Craving ice- iron studies and hb wnl BMI 31 (185lb)- rec 11-20 lb weight gain. Due to addit'l RF rec LDASA At next visit: review growth US RTC: 2 weeks Consuelo Newton DO Progress Notes - Hospital En counter - 12/12/2024 - GA:29w4d 12/12/2024 - - Amelia Rodriguez RN Data: Patient has been discharged [facility] via ambulatory accompanied by accompanied by partner. Action: Written discharge/follow-up instructions were provided to patient. Prescriptions : None. Belongingssent with patient. Response: Patient verbalized understanding of discharge instructions, reason for discharge, and necessary follow-up appointments. Amelia Rodriguez RN .................... 12/12/2024 5:49 PM 12/12/2024 - - Amelia Rodriguez RN Primip @ 29.4 IUP presents to with reports of not feeling FM at all this morning, then some movement around 1330. Denies any LOF or VB. Does report crampy feeling on lower abdomen, area from umbilicus to pubic symphysis that sometimes radiates down hip to upper leg. Pt states certain positions with bring on different intensities of the discomfort. Lying down is the least uncomfortable and seems to not really occur in that position. Pt denies any UTI S/S. NST procedure explained. EFM on. Amelia Rodriguez RN .................... 12/12/2024 5:01 PM Progress Notes - OB Encounte r - 11/29/2024 - GA:27w5d 11/29/2024 - 27w5d - Consuelo Pascual DO Care Visit Subjective Care (27w5d, no concerns) HISTORY OF PRESENT ILLNESS Patient is a 18 y.o. F at 27w5d here for return OB visit. She is doing well today. She denies any vaginal bleeding, loss of fluid, or contractions. She notes movement. REVIEW OF SYSTEMS Obtained and is negative other than stated in the HPI. Objective PHYSICAL EXAMINATION Vitals: 11/29/24 1504 BP: 106/66 Cuff Site: Left Arm Position: Sitting Cuff Size: Adult Large Pulse: 100 Weight: 97 kg (213 lb 12.8 oz) There is no height or weight on file to calculate BMI. General: No acute distress alert and oriented. Abdomen: Soft, gravid, nontender to palpation. FHR: 150s bpm Extremities: Warm, nontender, no edema. Assessment & Plan 1. , unspecified gestational age (HC) (Primary) FOB: Masoud Dating criteria: LMP c/w FTU Rh: + Ab: neg Rubella: imm Aneuploidy screening: declines Carrier screening: declines Anatomy Scan: wnl, placenta anterior, EFW 89%tile -> f/u growth US ordered PPBC: unsure - Obtaining 28-week labs today -Agreeable to Tdap vaccine today -Growth ultrasound ordered for approximately 32 weeks due to macrosomia and patient advised to schedule - movement count precautions discussed today -Breast pump Rx provided issues: Teen - social work consult placed but declines their referral - it the patient reconsiders, can either place an Amb Consult to Care Management Service #[phone] or call Care Management Intake at [phone]. macrosomia- EFW at 26w 91%tile Headache, resolved- Rx reglan Craving ice- iron studies and hb wnl BMI 31 (185lb)- rec 11-20 lb weight gain. Due to addit'l RF rec LDASA Orders: - GLUCOSE TOLERANCE, GESTATIONAL SCREEN 1H; Future - CBC W PLT NO DIFF; Future - TDAP VACCINE IM - TREPONEMA PALLIDUM; Future - Breast Pump Purchase; Electric breast pump for home use. Reason for need: breast feeding. Length of need: 99 months (lifetime use) At next visit: review growth US, review 28w labs RTC: 2-4 weeks Consuelo Newton, DO Progress Notes - OB Encounte r - 11/01/2024 - GA:23w5d 11/01/2024 - d - Consuelo Pascual DO Care Visit Subjective Care (23w5d, no concerns) HISTORY OF PRESENT ILLNESS Patient is a 18 y.o. F at 23w5d here for return OB visit. She is doing well today. She denies any vaginal bleeding, loss of fluid, or contractions. She notes movement. REVIEW OF SYSTEMS Obtained and is negative other than stated in the HPI. Objective PHYSICAL EXAMINATION Vitals: 11/01/24 1458 BP: 110/64 Cuff Site: Right Arm Position: Sitting Cuff Size: Adult Large Pulse: (!) 116 Weight: 93.4 kg (206 lb) There is no height or weight on file to calculate BMI. General: No acute distress alert and oriented. Abdomen: Soft, gravid, nontender to palpation. FHR: 150s bpm Extremities: Warm, nontender, no edema. Assessment & Plan 1. , unspecified gestational age (HC) (Primary) G1 FOB: Masoud Dating criteria: LMP c/w FTU Rh: + Ab: neg Rubella: imm Aneuploidy screening: declines Carrier screening: declines Anatomy Scan: wnl, placenta anterior, EFW 89%tile -> f/u growth US ordered - Advised to schedule growth ultrasound in 2 weeks -Discussed expectations for next visit (28-week labs and Tdap) issues: Teen - social work consult placed but declines their referral - it the patient reconsiders, can either place an Amb Consult to Care Management Service #[phone] or call Care Management Intake at [phone]. Headache, resolved- Rx reglan Craving ice- iron studies and hb wnl BMI 31 (185lb)- rec 11-20 lb weight gain. Due to addit'l RF rec LDASA At next visit: growth US, 28w labs, Tdap RTC: 4 weeks Consuelo Newton DO Progress Notes - OB Encounte r - 10/11/2024 - GA:20w5d 10/11/2024 - wd - Consuelo Pascual DO Care Visit Subjective Care (20w5d, was in the ER on Thursday, has some questions regarding delivery) HISTORY OF PRESENT ILLNESS Patient is a 18 y.o. F at 20w5d here for return OB visit. She is doing well today. She denies any vaginal bleeding, loss of fluid, or contractions. She notes good movement. She was seen inthe ER on 10/01/24 and diagnosed with round ligament pain. Pain has been improving. She has not had headaches since her last visit. REVIEW OF SYSTEMS Obtained and is negative other than stated in the HPI. Objective PHYSICAL EXAMINATION Vitals: 10/11/24 1507 BP: 100/60 Cuff Site: Right Arm Position: Sitting Cuff Size: Adult Large Pulse: 88 Weight: 89.6 kg (197 lb 8 oz) There is no height or weight on file to calculate BMI. General: No acute distress alert and oriented. Abdomen: Soft, gravid, nontender to palpation. FHR: 150s bpm Extremities: Warm, nontender, no edema. Assessment & Plan 1. , unspecified gestational age (HC) (Primary) G1 FOB: Masoud Dating criteria: LMP c/w FTU Rh: + Ab: neg Rubella: imm Aneuploidy screening: declines Carrier screening: declines - Anatomy Scan scheduled for next week - Discussed treatment options for round ligament pain issues: Teen - social work consult placed but declines their referral - it the patient reconsiders, can either place an Amb Consult to Care Management Service #[phone] or call Care Management Intake at [phone]. Headache- Rx reglan Craving ice- iron studies and hb wnl BMI 31 (185lb)- rec 11-20 lb weight gain. Due to addit'l RF rec LDASA At next visit: anatomy US RTC: 4 weeks Consuelo Newton DO Progress Notes - OB Encounte r - 09/13/2024 - GA:16w5d 09/13/2024 - wd - Consuelo Pascual DO Care Visit Subjective Care (16 weeks ) HISTORY OF PRESENT ILLNESS Patient is a 18 y.o. F at 16w5d here for return OB visit. She is doing well today. She denies any vaginal bleeding, loss of fluid, or cramping. Has not yet felt movement. She also complains of on and off headaches. They are occurring mainly across her forehead. Tylenol is only minimally helping. She has been experiencing allergy symptoms as well and recovering from recent cold. Additionally reports she has been craving ice. She is worried that she will have to have a due to being told in the past she has a tilted uterus. REVIEW OF SYSTEMS Obtained and is negative other than stated in the HPI. Objective PHYSICAL EXAMINATION Vitals: 09/13/24 1515 BP: 124/80 Cuff Site: Right Arm Position: Sitting Cuff Size: Adult Regular Long Pulse: 97 Weight: 85.7 kg (189 lb) There is no height or weight on file to calculate BMI. General: No acute distress alert and oriented. Abdomen: Soft, gravid, nontender to palpation. Extremities: Warm, nontender, no edema. BSUS: + IUP, + FM, FHR 150s bpm Assessment & Plan 1. , unspecified gestational age (HC) (Primary) G1 FOB: Masoud Dating criteria: LMP c/w FTU Rh: + Ab: neg Rubella: imm Aneuploidy screening: declines Carrier screening: declines - anatomy US ordered for 20w - discussed possible reasons may be indicated. No concerns at this time for patient needing to deliver via C/S issues: Teen - social work consult placed but declines their referral - it the patient reconsiders, can either place an Amb Consult to Care Management Service #[phone] or call Care Management Intake at [phone]. BMI 31 (185lb)- rec 11-20 lb weight gain. Due to addit'l RF rec LDASA 2. Headache - Rx Reglan provided. Advised to take with Benadryl - advised to take daily anti-histamine due to allergy symptoms 3. Craving ice - Hb and iron studies ordered At next visit: anatomy US, f/u on RODRIGUEZ, review lab results RTC: 4 weeks Consuelo Newton DO Progress Notes - OB Encounte r - 08/08/2024 - GA:11w4d 08/08/2024 - w4d - Consuelo Pascual DO Initial Visit 18 y.o. at with final HOWARD of 02/23/2025, Alternate HOWARD Entry Subjective HISTORY OF PRESENT ILLNESS Kamini Hammond presents for her initial visit. Doing well today. This is not planned but happy. FOB Masoud, dating. Patient's grandmother and her younger sister are present with her today. Patient's last menstrual period was 05/19/2024. She reports regular menses. She was not using contraception at the time of conception. She has complaints of N/V, but declines need for medication. She denies vaginal bleeding or abnormal vaginal discharge. Her risk factors for GDM include: First-degree relative with diabetes Early Hb A1c indicated: yes Her risk factors for preeclampsia include: nulliparity and BMI >30 LDASA indicated: yes Past obstetrical history: G1 Last pap smear: not obtained yet due to age <21 OB History Para Term AB Living 1 SAB IAB Ectopic Multiple Live Births # Outcome Date GA Lbr [place]/2nd Weight Sex Type Anes PTL Lv 1 Current No past medical history on file. Past Surgical History: . Laterality Date IP CONSULT TO ORAL SURGERY SURGERY OF LIP WISDOM TEETH EXTRACTION 2020 Social History Tobacco Use Smoking status: Never Smokeless tobacco: Never Vaping Use Vaping status: Never Used Substance Use Topics Alcohol use: Never Drug use: Never Family History Problem Relation Age of Onset Other (pre diabetes) Mother No Known Problems Father Current Outpatient Medications Medication Instructions 25/iron fum/folic/dha (-1 ORAL) Take by mouth. No Known Allergies REVIEW OF SYSTEMS Comprehensive review of systems obtained and negative except as stated in the HPI. Clinical Quality Measures: Normal BMI Range: 18 & older: > or = 18.5 and < 25 BMI 31 >30, recommend 11-20 lb weigh gain Objective BP 120/70 (Cuff Site: Right Arm, Position: Sitting, Cuff Size: Adult Regular) Pulse 86 Ht 1.625m (5' 3.98) Wt 83.9 kg (185 lb) LMP 05/19/2024 BMI 31.78 kg/m?? PHYSICAL EXAMINATION General: Alert, oriented, cooperative, no acute distress, normal mentation. HEENT: Normocephalic, EOMI, sclerae nonicteric. Neck: Symmetrical, no thyromegaly. Lungs: No wheezing, normal effort, no accessory muscle use. Cardiovascular: Regular rate . Abdomen: Soft, nontender. Pelvic: GC/C swab collected. Musculoskeletal: Full ROM in all 4 extremities Skin: No rashes, no pallor. Neurologic: No focal deficits, CN II-XII grossly intact. Psychiatric: Appropriate affect, normal behavior, speech and thought process normal. BSUS: + IUP, + FM, FHR 160s bpm OBSTETRIC LABS: New OB labs today IMAGING: US OB 1ST TRI SINGLE TA Narrative: For Patients: As a result of the Cures Act, medical imaging exams and procedure reports are released immediately into your electronic medical record. You may view this report before your referring provider. If you have questions, please contact your health care provider. INDICATION: Supervision of normal 1st . TECHNIQUE: Ultrasound OB, transabdominal. FINDINGS: There is a centrally positioned intrauterine gestational sac which contains a single fetus with documented cardiac activity of 169 beats per minute. [place]-rump length 4.4 cm, ultrasound gestational age 11 weeks 2 days, HOWARD 02/21/2025. Early placental formation anterior. No subchorionic hemorrhage or uterine wall abnormality. Both maternal ovaries are normal with a small corpus luteum present on the right. Impression: 1. Single fetus with ultrasound dating of 11 weeks 2 days, HOWARD 02/21/2025. 2. Given LMP 05/19/2024. Dating by LMP 11 weeks 0 days. Dictated by Skye Padilla MD @ 08/05/2024 7:31:19 AM (Electronically Signed) Assessment & Plan 1. Encounter for supervision of normal first in first trimester (HC) (Primary) G1 FOB: Masoud Dating criteria: LMP c/w FTU Aneuploidy screening: desires Carrier screening: declines - Continue vitamin -Reviewed first trimester ultrasound -Obtaining new OB labs today -Recommend starting aspirin 81 mg next week to reduce the risk of preeclampsia -Patient's grandmother has lung cancer and plans to start radiation and/or chemotherapy in the nearfuture (she is unsure of her exact treatment plan). She wonders if she can be in contact with the patient as they live together. Encouraged to avoid contact for 24 hours after treatment sessions. However she should contact her care team for specific recommendations as I do not know which therapy she is undergoing. -Encouraged use of shawn, Unisom and vitamin B6 as needed for nausea/vomiting. She can message if she desires an antiemetic. -Social work consult placed due to teen . Orders: - ANTI HCV; Future - ANTI HIV 1/2; Future - CBC W PLT NO DIFF; Future - GC CHLAMYDIA TRACH PROBE; Future - HBSAG (HBS); Future - DNA SCREEN SEND OUT; Future - RUBELLA IMMUNE STATUS; Future - TREPONEMA PALLIDUM; Future - TYPE & SCREEN; Future - URINE CULTURE; Future - VARICELLA-ZOSTER V AB, IGG; Future - VITAMIN D 25 (DEFICIENCY); Future - AMB CONSULT TO TIRE CENTER MANAGER - AFFILIATE ONLY; Future - HEMOGLOBIN A1C; Future - aspirin (Emile Low Dose Aspirin) 81 mg enteric coated tablet; Take 1 Tablet (81 mg) by mouth oncedaily. At next visit: review NOB labs, anatomy US Follow up in 4 weeks for routine OB visit COMPLETED BY: Consuelo Newton DO PIECE WORK CHECKER Progress Notes - Phone OB En counter - 08/02/2024 - GA:10w5d 08/02/2024 - 10w5d - Monika Eastman RN OB Education. This is her 1 . Her significant other Masoud is involved. She has a good support sytem with her family. HPI: Currently she is feeling Nausea at times but feels like she can control it. . Mood:Just feeling tired. counseled, information provided, and discussed No past medical history on file. OB History 1 There is no problem list on file for this patient. Current Outpatient Rx Medication Sig Dispense Refill 25/iron fum/folic/dha (-1 ORAL) Take by mouth. Medications have been reviewed by me and are current to the best of my knowledge and ability. Discussed about the following topics, patient will receive information at initial OB visit: Nutrition: counseled, information provided, and discussed -Usual weight gain: 25-35 for women starting with normal weight. Current BMI: 32 25 to 29.9: 15-25 lbs 30 or more: 11-20 lbs Physical Activity: counseled, information provided, and discussed Current activity: plays volleyball. She knows she cannot dive. Genetic testing: not sure about genetic testing. Calcium intake is adequate. women need 1,200 mg daily. A serving of food rich in calcium has 250 to 350 mg of calcium. (Examples include 8 oz of milk or fortified juice, 6 to 8 oz of yogurt.Three servings of calcium-rich food and your vitamin typically equal 1,200 mg daily. She does not take supplements. Caffeine: counseled, information provided, and discussed Limit caffeine each day to 200 mg. Coffee at coffee shops generally contain more caffeine, so be mindful of that. Sugar substitute:counseled, information provided, and discussed Fish:counseled, information provided, and discussed Eat only cooked fish- Parasites and bacteria in uncooked fish, such as sushi, can cause illness. Avoid smoked fish due to concerns about listeria. Lunch meats:counseled, information provided, and discussed Listeria-type of bacteria found in soil and water. Listeria can be found in raw meats and vegetables, foods that become contaminated after processing and raw or unpasteurized milk. Avoid foods high in calories from sugar and fat. Iron/protein intake Fluids: Drink 8 to 10 glasses of liquids each day. Increase if the weather is hot. Meds, Herbs, Vitamins: none Given list of over the counter medication that could be used in at the approval of the OBprovider. Was safe medication list sent through [employer] Will send list. Sleep: adequate Alcohol/Chemical Use: none She does not smoke, and has not smoked in the past. Quit smoking: none Screened for Domestic Abuse: none Toxoplasmosis Precaution: counseled, information provided, and discussed Exposure to cats: No exposure to cats. Avoidance of sauna/hot tubs emphasized. What to expect during visits Bring a list of questions you have for the provider. -Initial Ultrasound between 8-10 weeks -Anatomy ultrasound 18-20 weeks. Frequency of visits: -Monthly until 28 weeks then biweekly until 36 weeks, then weekly until 40 weeks unless problems. -Reviewed Bloodwork to be done at first OB: CBC, Hepatitis B, HIV, RPR, Gonorrhea, Chlamydia, UA, URINE CULTURE, Drug screen, TSH, Blood type. RPR testing also done at 28 weeks and delivery. -RPR at 28 weeks and after delivery. Tdap shot at end of - Need for Rhogam shots based on blood typing done with labwork today. Rhogam shots at 28 weeks and 12 weeks later if still for Rh - mothers. Another Rhogam within 72 hours of delivery if baby Rh positive. Discussed resources available, nurses, OB MD, lacatation sr solutions consultant and Babystop class. Advised to check on breastpumps with insurance. Informed patient how to contact the triage nurse or the labor and delivery floor if experiencing any symptoms listed below. Warning signs: vaginal bleeding, fluid leaking from your vagina, severe abdominal pain, nausea/vomiting more than 4-5 times a day or if not able to keep anything down, fever more than 100.4, problemswith urination and headache that doesn't go away with tylenol. Questions the patient has: no questions. A/P: OB Education. OB labs and US are ordered. She is not in need of a prescription for vitamins and she has her next OB visit scheduled with Dr. Parikh 08/08/24. 30 minutes spent with patient and greater than 50% was spent on counseling. Monika Eastman RN .................... 08/02/2024 2:41 PM Last Filed Vital Signs Vital SignReadingTime TakenCommentsBlood Foygqteh835/7811 10:17 AM TOP CLEANER Xgosd13176/28/2025 10:17 AM WDYVjfozifkywc99.9 ??C (98.4 ??F)02/25/2025 8:26 AM CSTRespiratory Mrrd440504/27/2024 8:26 AM CSTOxygen Jjxhuzntme80%03/10/2025 10:17 AM CSTInhaled Oxygen Concentration--Munzrf62.3 kg (208 lb)03/10/2025 10:17 AM BTDIckbly628.5 cm (5' 3.98)10/01/2024 11:48 AM CDTBody Mass Index-- Plan of Treatment DateTypeDepartmentCare Team (Latest Contact Info)Uaqnxghpwsx23/02/2026 11:45 AM CSTOffice Visit [facility] [address] [place] [address] Consuelo Newton, [address], [place] [id number] Health MaintenanceDue DateLast DoneCommentsWell Child Check for age 3-20 11/28/2008HPV series for age 9-45 (1 - 3-dose series)2020Meningococcal series for age 11-21 (1 - 2-dose series)2021OVID-19 vaccine series ( - 2024- season)Hepatitis B series for 19+ (1 of 3 - 19+ 3- dose series)5BMI (ht and wt on same day) for age 18+08/08/2025 08/08/2024, 08/02/2024hlamydia for age 16-240Depression screening for age 12+/, 12/14/2024, 11/29/2024, Additional history existsTetanus edzvnvf87/HIV for age 15-65Completed 08/08/2024Hepatitis C screening for age 18-08Awbqcfpnf71/28/2025Influenza AotnbgqZdespappe27/07/2025, 04/14/2024Pneumococcal series for age 6-49Aged OutNo longer eligible based on patient's age to complete this topic Procedures Procedure NamePriorityDate/TimeAssociated DiagnosisCommentsHEMOGLOBINEarly AM 02/24/2025 7:34 AM TOP CLEANER [facility] TUBING ND2Xhhaicn16/13/2025 8:33 AM TOP CLEANER [facility] LABOR EPIDURAL FUXCDPABqxibxx43/13/2025 8:33 AM TOP CLEANER EPIDURAL QVWTJPcogbav42/13/2025 8:33 AM TOP CLEANER [facility] DRSG IB3Bbeomdd83/13/2025 8:33 AM TOP CLEANER [facility] KIT EPIDURAL GI82Fuaaaxb51/13/2025 8:33 AM TOP CLEANER [facility] NDL UE4Jqjifob53/13/2025 8:33 AM TOP CLEANER TYPE & ECWYXYHcxzh34/12/2025 7:56 PM TOP CLEANER CBC WITH AUTO CTMTBCRKAZWCWdcqb04/12/2025 7:56 PM TOP CLEANER CBC WITH AUTO BPREFSUYIHKHZydql50/12/2025 7:56 PM TOP CLEANER TREPONEMA QLWQYYCWZcheo63/12/2025 7:56 PM TOP CLEANER NONSTRESS OJYRSzvrhwn13/02/2025 1:02 AM CDT VAGINAL/RECTAL OB STREP EOKGayekwu42/21/2025 3:35 PM CDT , unspecified gestational age (HC) US OB FOLLOW UP ANY TRI SINGLE XLJxnwtpr82/16/2025 4:16 PM CDT macrosomia during , antepartum, single or unspecified fetus (HC) NONSTRESS UNGAQawdwwc28/06/2025 11:52 PM CDT ANTI HIV 1/3Sqgzfpw87/28/2025 11:32 AM CDT Encounter for supervision of normal first in first trimester (HC) ANTI AUUSbxphvz62/28/2025 11:32 AM CDT Encounter for supervision of normal first in first trimester (HC) GC CHLAMYDIA TRACH ZDEMPOgdutpp53/28/2025 11:26 AM CDT Encounter for supervision of normal first in first trimester (HC) from Last 3 Months or Most Recently Relevant to Health Maintenance Results * (ABNORMAL) Hemoglobin (02/24/2025 7:34 AM TOP CLEANER)ComponentValueRef RangeTest MethodAnalysis TimePerformed AtPathologist SignatureHEMOGLOBIN9.2(L)12.0 - 16.0 g/dL02/24/2025 7:48 AM [facility] QAKXDUBNKARJO0443 - 100 fL02/24/2025 7:48 AM [facility] LABORATORYSpecimen (Source)Anatomical Location / LateralityCollection Method / VolumeCollection TimeReceived TimeBloodBLOOD SPECIMEN / UnknownVenipuncture / Grggwul5402/24/2025 7:34 AM CST02/24/2025 7:42 AM TOP CLEANER Narrative [facility] - 02/24/2025 7:48 AM TOP CLEANER day 1. Authorizing ProviderResult TypeResult StatusRaquel Vesta Newton DO HEMATOLOGYFinal ResultPerforming OrganizationAddressCity/State/ZIP CodePhone Number [facility] [address] [place] [address] * [facility] NDL PR5, [facility] KIT EPIDURAL PR10, [facility] DRSG PR1, EPIDURAL BLOCK, [facility] LABOR EPIDURAL INITIAL, [facility] TUBING PR5 (02/23/2025 8:33 AM TOP CLEANER) Narrative Lb Phillips MD - 02/23/2025 8:33 AM TOP CLEANER Lb Phillips MD 02/23/2025 8:53 AM Labor Analgesia Labor Analgesia Type: epidural Patient location during procedure: OB Start time: 02/23/2025 8:33 AM End time: 02/23/2025 8:53 AM Diagnosis: planned vaginal delivery Completed: patient identified, risks and benefits discussed, timeout performed, chloraprep used and completely dried prior to procedure and surgical consent Patient position: sitting Patient monitoring: continuous pulse oximetry, ECG and blood pressure Approach: midline Prep: chloraprep and sterile drape Skin Infiltration: lidocaine 1% SHILPA: saline Epidural Location: lumbar Needle and Epidural Catheter Needle type: Tuohy Needle gauge: 18 G Needle length: 6 in Catheter type: closed tip Catheter size: 19 G Aspiration of Catheter: negative Test dose: lidocaine 1.5% with epinephrine 1:200,000 Test dose amount: 3 ml Test dose result: negative Assessment Events: no complications Authorizing ProviderResult TypeResult StatusTenzin Desa MDANESTHESIA PX NOTE ORDERABLESFinal Result * (ABNORMAL) CBC WITH AUTO DIFFERENTIAL (02/22/2025 7:56 PM TOP CLEANER)ComponentValue Ref RangeTest MethodAnalysis TimePerformed AtPathologist SignatureWHITE BLOOD COUNT11.2(H)4.5 - 11.0 thou/cu mm02/22/2025 8:23 PM [facility] LABORATORYRED BLOOD COUNT4.024.00 - 5.20 mil/cu mm02/22/2025 8:23 PM [facility] CGEMWNRMTRJEAHYQNZYB66.7(L)12.0 - 16.0 g/dL 02/22/2025 8:23 PM [facility] VRZAGXTOZWUWTTMWHGXX56.033.0 - 51.0 %02/22/2025 8:23 PM [facility] XKMZMNSIKQPBE1276 - 100 fL02/22/2025 8:23 PM [facility] XPIWLJPBUTETZ91.626.0 - 34.0 pg02/22/2025 8:23 PM [facility] PBRXFVDIAVCPDA56.5(L)32.0 - 36.0 g/dL02/22/2025 8:23 PM [facility] WBBVHFTZRWVRZ69.311.5 - 15.5 %02/22/2025 8:23 PM [facility] LABORATORYPLATELET TZFQH118417 - 440 thou/cu mm02/22/2025 8:23 PM [facility] YZWHVGCHDENEP74.2(H)6.5 - 11.0 fL02/22/2025 8:23 PM [facility]% NEUT74.4%02/22/2025 8:23 PM [facility]% LYMPH18.4%02/22/2025 8:23 PM [facility]% MONO6.6%02/22/2025 8:23 PM [facility]% EOS0.4%02/22/2025 8:23 PM [facility]% BASO0.2% 02/22/2025 8:23 PM [facility] LABORATORYABSOLUTE NEUTROPHILS 8.3(H)1.7 - 7.0 thou/cu 02/22/2025 8:23 PM [facility] LABORATORYABSOLUTE LYMPHOCYTES2.10.9 - 2.9 thou/cu 02/22/2025 8:23 PM [facility] LABORATORYABSOLUTE MONOCYTES0.7<0.9 thou/cu mm 02/22/2025 8:23 PM [facility] LABORATORYABSOLUTE EOSINOPHILS 0.0<0.5 thou/cu 02/22/2025 8:23 PM [facility] ABSOLUTE BASOPHILS0.0<0.3 thou/cu 02/22/2025 8:23 PM [facility] LABORATORYSpecimen (Source)Anatomical Location / LateralityCollection Method / VolumeCollection TimeReceived TimeBloodBLOOD SPECIMEN / Unknown Venipuncture / Jujjgvx0902/22/2025 7:56 PM CST02/22/2025 8:19 PM TOP CLEANER Narrative Authorizing ProviderResult TypeResult StatusRaquel Vesta Newton DO HEMATOLOGYFinal ResultPerforming OrganizationAddressCity/State/ZIP CodePhone Number [facility] [address] [place] [address] * Treponema Pallidum (02/22/2025 7:56 PM TOP CLEANER)ComponentValueRef RangeTest Method Analysis TimePerformed AtPathologist SignatureTREPONEMA PALLIDUMNon-Reactive Non-Xjjllkai84/13/2025 2:47 PM [facility] Specimen (Source)Anatomical Location / LateralityCollection Method / Volume Collection TimeReceived TimeBloodBLOOD SPECIMEN / UnknownVenipuncture / Imnycxu7702/22/2025 7:56 PM CST02/22/2025 8:19 PM TOP CLEANER Narrative Authorizing ProviderResult TypeResult StatusRaquel Vesta ParikhAnthonyCassydante DO SEND OUTSFinal ResultPerforming OrganizationAddressCity/State/ZIP CodePhone Number [facility] [address] [place] [address], * TYPE & SCREEN (02/22/2025 7:56 PM TOP CLEANER)ComponentValueRef RangeTest Method Analysis TimePerformed AtPathologist SignatureABORHO Rh Sihfgqvk18/12/2025 9:26 PM [facility] BLOOD BANKANTIBODY SCREEN QtfexahzEgbbxqok65/12/2025 9:26 PM [facility] BLOOD BANKSPECIMEN EXPIRATION DATE/TIME02/25/25 23:5902/22/2025 9:26 PM TOP CLEANER [facility] BLOOD BANKSpecimen (Source)Anatomical Location / LateralityCollection Method / VolumeCollection TimeReceived Time BloodBLOOD SPECIMEN / UnknownVenipuncture / Ihaothz4702/22/2025 7:56 PM TOP CLEANER 02/22/2025 8:19 PM TOP CLEANER Narrative Authorizing ProviderResult TypeResult StatusRaquel Vesta Lamar DO BLOOD BANKFinal ResultPerforming OrganizationAddressCity/State/ZIP CodePhone Number [facility] BLOOD BANK [address] [place] [address] * Nonstress Test (02/12/2025 1:02 AM CDT) Only the most recent of2 resultswithin the time period is included. Narrative Radha Tong MD - 02/12/2025 1:02 AM CDT Radha Tong MD 02/12/2025 10:07 AM HEART RATE TRACING INTERPRETATION Patient: Kamini Hammond : 2005 Date of test: ??02/12/2025 ? Strip Time Segment: 0022 to 0053 EDISON/Acct: [id number] ? Admitting Physician: ??Radha Tong MD Gestational Age: ??38w3d HOWARD of 02/23/2025, Alternate HOWARD Entry Reason for Non-Stress test: elevated blood pressure and swelling Is Patient Having Contractions?: Yes Contractions / Frequency: 1 ctx noted in 31 min Contractions Duration (range in sec): (not recorded) Contractions Strength By Palpation: (not recorded) Palpated Resting Tone: (not recorded) Patient Perception of Contractions: (not recorded) Movement: Present (per pt report and visualized by this RN) Baseline FHR: 125 Baseline Variability: Moderate Accelerations: Present Age Appropriate Accelerations: 15 X 15;2 in 20 (prolonged accels noted) Decelerations / Type: None Acoustic Stimulator: (not recorded) Nonstress Test Interpretation: Reactive Result: Expected result Provider notification: Called to Dr Tong at 0049. ??Plan discharge home. Documentation reviewed and found to be appropriate and complete. ?? Erin Prater RN .................... ??02/12/2025 ?? 1:02 AM NST reviewed and reactive. Radha Tong MD .................... ??02/12/2025 ?? 10:07 AM Authorizing ProviderResult TypeResult StatusRadha Tong MDOB PROCEDURE ORDFinal Result * VAGINAL/RECTAL OB STREP PCR (01/31/2025 3:35 PM CDT)ComponentValueRef Range Test MethodAnalysis TimePerformed AtPathologist SignatureVaginal/Rectal OB Strep B KOWKcejsthe91/23/2025 10:43 AM [facility] LABORATORYSpecimen (Source)Anatomical Location / LateralityCollection Method / VolumeCollection TimeReceived TimeOther (Vaginal/Rectal)Non-Blood / Unknown 01/31/2025 3:35 PM CDT1 5:18 PM CDT Narrative Authorizing ProviderResult TypeResult StatusRaaparna Newton DO MICROBIOLOGYFinal ResultPerforming OrganizationAddressCity/State/ZIP CodePhone Number [facility] [address] [address], [place] * US OB FOLLOW UP ANY TRI SINGLE TA (01/26/2025 4:16 PM CDT)Anatomical Region LateralityModalityPREGNANCY, 2or 3 TRIMESTERUltrasoundSpecimen (Source)Anatomical Location / LateralityCollection Method / VolumeCollection TimeReceived Time01/27/2025 7:46 AM CDT Impressions 01/27/2025 7:46 AM CDT 1. Current ultrasound dating 38 weeks 6 days, HOWARD 02/03/2025. weight is at the 98th percentile. 2. LMP 05/19/2024. Dating by LMP 36 weeks 6 days. Dictated by Skye Padilla MD @ 01/27/2025 7:46:50 AM (Electronically Signed) Narrative 01/27/2025 7:46 AM CDT For Patients: As a result of the Cures Act, medical imaging exams and procedure reports are released immediately into your electronic medical record. You may view this report before your referring provider. If you have questions, please contact your health care provider. INDICATION: Check growth TECHNIQUE: Ultrasound OB pelvis transabdominal. Real-time davila-scale imaging of the fetus was performed. COMPARISON: 12/20/2024 and 08/04/2024 FINDINGS: Sonographic imaging demonstrates a single living intrauterine gestation. Fetus demonstrates a regular cardiac rate of 140 beats per minute. Fetus has a cephalic orientation. The placenta lies anterior without evidence of placenta previa. Amniotic fluid volume appears normal. Single deepest verticalpocket: 7.4 cm. The composite ultrasound gestational age is calculated at 38 weeks 6 days with an estimated sonographic due date of 02/03/2025. The estimated weight is 3710 grams which lies at the 98%. The following biometric measurements were obtained: Biparietal diameter: 9.5 cm, 38 weeks 6 days,< 99 percentile. Head circumference: 33.8 cm, 38 weeks 6 days, 84th percentile. Abdominal circumference: 36.3 cm, 40 weeks 2 days, greater than 98 percentile. Femur length: 7.2 cm, 37 weeks 0 days, 69th percentile. Procedure Note Jose Padilla MD - 01/27/2025 For Patients: As a result of the Cures Act, medical imagingexams and procedure reports are released immediately into your electronicmedical record. You may view this report before your referring provider.If you have questions, please contact your health care provider. INDICATION: Check growth TECHNIQUE: Ultrasound OB pelvis transabdominal. Real-time davila-scale imaging of thefetus was performed. COMPARISON: 12/20/2024 and 08/04/2024 FINDINGS: Sonographic imaging demonstrates a single living intrauterine gestation.Fetus demonstrates a regular cardiac rate of 140 beats per minute. Fetushas a cephalic orientation. The placenta lies anterior without evidence ofplacenta previa. Amniotic fluid volume appears normal. Single deepestvertical pocket: 7.4 cm. The composite ultrasound gestational age is calculated at 38 weeks 6 dayswith an estimated sonographic due date of 02/03/2025. The estimated fetalweight is 3710 grams which lies at the 98%. The following biometric measurements were obtained: Biparietal diameter: 9.5 cm, 38 weeks 6 days,< 99 percentile. Head circumference: 33.8 cm, 38 weeks 6 days, 84th percentile. Abdominal circumference: 36.3 cm, 40 weeks 2 days, greater than 98percentile. Femur length: 7.2 cm, 37 weeks 0 days, 69th percentile. IMPRESSION: 1. Current ultrasound dating 38 weeks 6 days, HOWARD 02/03/2025. weightis at the 98th percentile. 2. LMP 05/19/2024. Dating by LMP 36 weeks 6 days. Dictated by Skye Padilla MD @ 01/27/2025 7:46:50 AM (Electronically Signed) Authorizing ProviderResult TypeResult StatusRaquel Vesta ParikhAnthonyAshish MIRANDA Final Result * ANTI HCV (08/08/2024 11:32 AM CDT)ComponentValueRef RangeTest MethodAnalysis TimePerformed AtPathologist SignatureHEPATITIS C ANTIBODYNON-REACTIVE NON-REACTIVEQuest Floating Hospital For ChildreneComment: HCV antibody was non-reactive. There is no laboratory evidence of HCV infection. In most cases, no further action is required. However, if recent HCV exposure is suspected, a test for HCV RNA (test code 53850) is suggested. For additional information please refer to http://education.[employer]/faq/XTT63c7 (This link is being provided for informational/ educational purposes only.) Specimen (Source)Anatomical Location / LateralityCollection Method / Volume Collection TimeReceived TimeBloodBLOOD SPECIMEN / Ajtwzjb3608/08/2024 11:32 AM CDT 08/08/2024 11:33 AM CDT Narrative Authorizing ProviderResult TypeResult StatusRaque EzequielNativosWindspire Energy (f[employer])[facility] [place] DO SEND OUTSFinal ResultPerforming OrganizationAddressty/State/[facility] CodePhone Number [employer] [facility] [address] [place] [address], [facility] [address] [place] [address] * ANTI HIV 1/2 (08/08/2024 11:32 AM CDT)ComponentValueRef RangeTest Method Analysis TimePerformed AtPathologist SignatureHIV AG/AB, 4TH GENNON-REACTIVE NON-REACTIVEPangaloreNorth Shore HealtheComment: HIV-1 antigen and HIV-1/HIV-2 antibodies were not detected. There is no laboratory evidence of HIV infection. PLEASE NOTE: This information has been disclosed to you from records whose confidentiality may be protected by state law. ??If your state requires such protection, then the state law prohibits you from making any further disclosure of the information without the specific written consent of the person to whom it pertains, or as otherwise permitted by law. A general authorization for the release of medical or other information is NOT sufficient for this purpose. ?? For additional information please refer to http://education.[employer]/faq/PVM879 (This link is being provided for informational/ educational purposes only.) The performance of this assay has not been clinically validated in patients less than 2 years old. Specimen (Source)Anatomical Location / LateralityCollection Method / Volume Collection TimeReceived TimeBloodBLOOD SPECIMEN / Bzdatrf9708/08/2024 11:32 AM CDT 08/08/2024 11:33 AM CDT Narrative Authorizing ProviderResult TypeResult StatusRaDivergence Vesta Parikh-Cassyselect medical [facility], [place] DO SEND OUTSFinal ResultPerforming OrganizationAddressty/State/ZIP CodePhone Number [facility] [address] [place] [address], [facility] [address] [place] [address] * GC CHLAMYDIA TRACH PROBE (08/08/2024 11:26 AM CDT)ComponentValueRef RangeTest MethodAnalysis TimePerformed AtPathologist SignatureCHLAMYDIA PROBENegative 08/09/2024 2:52 AM CDTALSLEEPY EYE [facility] LAB[facility]-CENTRAL LABORATORYN GONORRHOEAE PROBENegative 08/09/2024 2:52 AM CDWIN[facility]-CENTRAL LABORATORYSpecimen (Source)Anatomical Location / LateralityCollection Method / VolumeCollection TimeReceived TimeOtherVAGINAL SWAB / UnknownNon-Blood / Wzuevlb7308/08/2024 11:26 AM CDT08/08/2024 2:10 PM CDT Narrative Authorizing ProviderResult TypeResult StatusRaquel Vesta Newton DO MICROBIOLOGYFinal ResultPerforming OrganizationAddressCity/State/ZIP CodePhone Number [facility] [address] [address], from Last 3 Months or Most Recently Relevant to Health Maintenance Insurance Advance Directives * Full Code (Latest Code Status on File) Date ActivatedDate HdbopsjgffhOwucszck73/12/2025 7:38 PM02/25/2025 3:03 PM QuestionAnswerCommentsCode Status Discussion:* Unable to Assess Preferences, Provider to review later Care Teams Team MemberRelationshipSpecialtyStart DateEnd Date Dolores Cobb - Vmgnlpo45/3/25
[2025-03-27 06:19] LABS: Appearance Urine Clear (Clear)
--- NOTE | 2025-03-27 06:38 | ED_ITS ---
HPI - General Adult General Chief complaint: Abdominal Pain Stated complaint: Abdominal and back pain Time Seen by Provider: 03/27/25 06:36 History of Present Illness HPI narrative: starting at 0100, pt reports nausea, pain at belly button to center of back. No meds taken at home. Pt 4 weeks post?. Pain rated 6/10. 19-year-old young woman presenting to the emergency department with concern of nausea, has been vomiting in mid abdominal pain a between the belly button and epigastrium which she says is radiating to her back. This all began about the same time about 5 hours prior to presentation to the emergency department. She gestures around her right abdomen to her back. Hurts across the upper abdomen though she says. Burning. Has not had any hematochezia. No noted dysuria. No fever. For weeks or so vaginal delivery. No known complications. Ibuprofen was not helpful with pain. Related Data Previous Rx's ?Medication ?Instructions ?Recorded famotidine 40 mg tablet 40 mg PO DAILY PRN #30 tabs 03/27/25 Allergies Allergy/AdvReac Type Severity Reaction Status Date / Time No Known Drug Allergies Allergy Verified 03/27/25 06:02 Review of Systems Status of ROS: Reports: 6 or more systems reviewed and unremarkable except as noted in History and below PFSH PFS Social History Non-prescribed substance use: denies use Exam Narrative: Exam Narrative: Pleasant. Seems uncomfortable though. Holding emesis bag. Winces with transition. She is breathing easily. Lungs are clear. Heart in regular rate and rhythm. Abdomen is overweight and soft with tenderness in the umbilicus and up into the epigastrium. No flank tenderness. No peritoneal signs. Extremities are well perfused without edema. Oropharynx is sticky. Const: Vital Signs, click to edit/add: Vital Signs - 24 hr 03/27/25 05:57 03/27/25 07:12 03/27/25 07:50 Temperature 96.5 F L Pulse Rate 72 Pulse Rate [Left P ulse Oximeter] 83 70 Respiratory Rate 18 24 20 Blood Pressure 115/71 Blood Pressure [Ri ght Upper Arm] 117/79 Pulse Oximetry 98 98 100 Oxygen Delivery Me thod Room Air Room Air Documenting provider has reviewed patient's vital signs: yes Course Vital Signs Vital signs: Initial Vital Signs Temperature 96.5 F L 03/27/25 05:57 Temperature Source Temporal Artery Scan 03/27/25 05:57 Pulse Rate 83 03/27/25 05:57 Pulse Rhythm Regular 03/27/25 05:57 Respiratory Rate 18 03/27/25 05:57 Blood Pressure 117/79 03/27/25 05:57 Blood Pressure Mean 91 03/27/25 05:57 Blood Pressure Position Sitting 03/27/25 05:57 Pulse Oximetry 98 03/27/25 05:57 Oxygen Delivery Method Room Air 03/27/25 05:57 Vital Signs Temperature 96.5 F L 03/27/25 05:57 Pulse Rate 83 03/27/25 05:57 Respiratory Rate 18 03/27/25 05:57 Blood Pressure 117/79 03/27/25 05:57 Pulse Oximetry 98 03/27/25 05:57 Oxygen Delivery Method Room Air 03/27/25 05:57 Temperature 96.5 F L 03/27/25 05:57 Pulse Rate 72 03/27/25 07:50 Respiratory Rate 20 03/27/25 07:50 Blood Pressure 115/71 03/27/25 07:50 Pulse Oximetry 100 03/27/25 07:50 Oxygen Delivery Method Room Air 03/27/25 07:12 Medications Administered Medications: Discontinued Medications Generic Name Dose Route Start Last Admin Trade Name Freq PRN Reason Stop Dose Admin Sodium Chloride 1,000 mls @ 1,000 mls/hr 03/27/25 06:49 03/27/25 07:50 0.9 % Sodium Chloride 1000 Ml IV 03/27/25 07:48 Infused .Q1H ONE Infusion Lidocaine/Aluminum/Magnesium/Simeth 30 ml 03/27/25 08:42 03/27/25 08:50 Gi Cocktail (Visc Lido/Antacid) 30 Ml PO 03/27/25 08:43 30 ml ONCE ONE Administration Morphine Sulfate 4 mg 03/27/25 06:49 03/27/25 07:10 Morphine 4 Mg/Ml Inj IVP 03/27/25 06:50 4 mg ONCE ONE Administration Ondansetron HCl 4 mg 03/27/25 06:50 03/27/25 07:10 Ondansetron 2 Mg/Ml Inj IVP 03/27/25 06:51 4 mg ONCE ONE Administration Medical Decision Making MDM Narrative Medical decision making narrative: Differential includes gastritis with associated pain and, ureteral stone and colic, biliary colic, pancreatitis, UTI, vascular disruption is unlikely as is diverticulitis. Standard labs and IV fluids. Morphine and Zofran. Labs are generally reassuring. On reassessment is improved though still with some 2 to 3/10 level discomfort in area as mentioned above. Discussed potential benefit of GI cocktail but will hold off on this pending limited abdominal ultrasound. Discussed findings of limited abdominal ultrasound with booth operator. Some findings consistent with fatty liver but otherwise unremarkable. Radiology over-read below Indication: Pain Technique: Sonography of the abdomen was performed limited to the structures discussed below. Comparison: There are no prior studies for comparison Findings: Gallbladder wall thickness is normal at 1 millimeter. No such, calculus or pericholecystic fluid. No reported sonographic Posey`s sign. The common duct measures 3 millimeters which is normal The liver is prominent measuring 17.6 centimeters. This is probably due to a Linda`s lobe, enlarged right lobe, which is considered normal variation. Normal biliary ductal dilation. No focal mass. Normal echogenicity The pancreas as visualized appears normal. Portions are obscured by bowel gas. The right kidney is unremarkable in size and appearance measuring 12.0 x 3.9 x 5.3 centimeters. Aorta and cava as visualized appear normal. The main portal vein is patent with appropriate directional flow. Impression: No visible cause for pain. Prominent right lobe of the liver probably a Linda`s lobe. This is considered normal variation. The gallbladder appears normal. Dictated by Wander Karimi MD @ 03/27/2025 9:09:44 AM Improved with GI cocktail. Still mildly present. Challenged with some juice and seems to be doing well with this as well. She does recount that last week had an episode similar where some sudden vomiting and pain. But after vomiting she felt better. She notes some lactose intolerance. She might be experiencing some biliary dysfunction and I think could do outpatient follow-up in this regard. Otherwise prescribe a couple weeks of famotidine. The patient discharge plan for further discussion You might benefit from mild acid manager strategic partnerships in short-term; I am sending in a prescription for famotidine. For breakthrough discomfort could try liquid antacid like Mylanta. Also prescribing some Zofran from [facility] for nausea. Would follow up with primary care or possibly General surgery to discuss these recurrent pains. Does not appear that there is any problem with your gallbladder at least in labs and imaging here today. There is other evaluation that can be done. Medical Records Medical records reviewed: Yes I reviewed the patient's medical records Lab Data Lab results reviewed: Yes I reviewed the patient's lab results Labs: Lab Results 03/27/25 03/27/25 03/27/25 Range/Units 06:16 07:00 07:43 WBC 8.68 (4.50-11.00) K/uL RBC 4.55 (4.00-5.20) m/uL Hgb 12.1 (12.0-16.0) gm/dL Hct 37.8 (33.0-51.0) % MCV 83 (80-100) fL MCH 27 (26-34) pg MCHC 32 (32-36) gm/dL RDW Coeff of Dominick 14.4 (11.5-15.5) % Plt Count 267 (140-440) K/uL Neut % (Auto) 78.8 H (42.0-72.0) % Lymph % (Auto) 16.7 L (20-44) % [place] % (Auto) 3.7 (0.0-11.0) % Eos % (Auto) 0.2 (0.0-7.0) % Baso % (Auto) 0.1 (0.0-3.0) % Neut # (Auto) 6.80 (1.7-7.0) K/uL Lymph # (Auto) 1.40 (0.90-2.90) K/uL [place] # (Auto) 0.30 (0.00-0.90) K/UL Eos # (Auto) 0.02 (0.00-0.50) K/uL Baso # (Auto) 0.01 (0.00-0.30) K/uL Abs Immat Gran (auto) 0.04 (0.00-0.30) K/uL Imm/Tot Granulo (auto) 0.5 % Sodium 136 (135-149) mmol/L Potassium 4.1 (3.6-5.1) mmol/L Chloride 100 (96-114) mmol/L Carbon Dioxide 28 (20-32) mmol/L Anion Gap 8 (7-15) mEq/L BUN 14 (5-24) mg/dL Creatinine 0.6 (0.6-1.2) mg/dL Estimated Creat Clear 119.28 Estimated GFR 133 ml/min Glucose 121 H (60-115) mg/dL Calcium 9.3 (8.7-10.8) mg/dL Total Bilirubin 0.4 (0.1-1.5) mg/dL Direct Bilirubin 0.1 (0.0-0.5) mg/dL AST 22 (12-35) U/L ALT 18 (4-35) U/L Alkaline Phosphatase 84 (40-150) U/L C-Reactive Protein < 0.5 L (0.5-1.0) mg/dL Total Protein 7.4 (6.0-8.3) g/dL Albumin 4.5 (3.3-5.0) g/dL Lipase 43 (23-300) U/L Urine Color Yellow (Yellow) Urine Appearance Clear (Clear) Urine pH 5.5 (5.0-8.5) Ur Specific [place] 1.025 (1.000-1.030) Urine Protein Trace A (Negative) Urine Glucose (UA) Negative (Negative) Urine Ketones Trace A (Negative) Urine Blood 2+ A (Negative) Urine Nitrite Negative (Negative) Urine Bilirubin Negative (Negative) Urine Urobilinogen 0.2 (0.2-1.0) Ur Leukocyte Esterase Negative (Negative) Urine RBC 2-5 A (0-2) Urine WBC 0-2 (0-5) Ur Squamous Epith Cells None (None-Few) Urine Bacteria Few A (None) SARS-CoV-2 (PCR) Negative SARS-CoV-2 (Negative) Influenza Type A (PCR) Negative PCR FLU A (Negative) Influenza Type B (PCR) Negative PCR FLU B (Negative) Lab Acknowledgement Test Added Discharge Plan Discharge Clinical Impression: Gastritis Patient Disposition: Home w/ Parent or Adult Condition: Improved Additional Instructions: You might benefit from mild acid manager strategic partnerships in short-term; I am sending in a prescription for famotidine. For breakthrough discomfort could try liquid antacid like Mylanta. Also prescribing some Zofran from [facility] for nausea. Would follow up with primary care or possibly General surgery to discuss these recurrent pains. Does not appear that there is any problem with your gallbladder at least in labs and imaging here today. There is other evaluation that can be done. Prescriptions: New famotidine 40 mg tablet 40 mg PO DAILY PRNQty: 30 0RF Follow Up/Referrals: Provider,Not a Local [Primary Care Provider, Family Practice] Stand Alone Forms: [employer] Info Instructions
[2025-03-27] MEDS: MORPHINE 4 MG/ML INJ IVP (07:10)
[2025-03-27] MEDS: ONDANSETRON 2 MG/ML inj 4 MG IVP (07:10)
[2025-03-27 07:12] VITALS: PULSE 70; RESP 24; O2SAT 98
[2025-03-27 07:12] LABS: Hematocrit* 37.8 % (33.0-51.0); Hemoglobin* 12.1 gm/dL (12.0-16.0); Immature Granulocytes Abs Auto 0.04 K/uL (0.00-0.30); Immature Granulocytes Pct Auto 0.5 %; Mean Corpuscular HGB Conc 32 gm/dL (32-36); Mean Corpuscular Hemoglobin 27 pg (26-34); Mean Corpuscular Volume 83 fL (80-100); RDW Coefficient of Variation % 14.4 % (11.5-15.5); Red Blood Count* 4.55 m/uL (4.00-5.20); White Blood Count* 8.68 K/uL (4.50-11.00)
[2025-03-27 07:13] LABS: Lymphocytes Absolute Auto 1.40 K/uL (0.90-2.90); Slide Review Reflex No
[2025-03-27 07:21] LABS: Albumin* 4.5 g/dL (3.3-5.0); Chloride* 100 mmol/L (96-114); Potassium* 4.1 mmol/L (3.6-5.1); Sodium* 136 mmol/L (135-149)
[2025-03-27 07:23] LABS: Blood Urea Nitrogen* 14 mg/dL (5-24); Creatinine* 0.6 mg/dL (0.6-1.2)
[2025-03-27 07:24] LABS: Alanine Aminotransferase* 18 U/L (4-35); Alkaline Phosphatase* 84 U/L (40-150); Anion Gap 8 mEq/L (7-15); Aspartate Amino Transferase* 22 U/L (12-35); Bilirubin Direct* 0.1 mg/dL (0.0-0.5); Bilirubin Total* 0.4 mg/dL (0.1-1.5); Calcium* 9.3 mg/dL (8.7-10.8); Carbon Dioxide* 28 mmol/L (20-32); Est. Creatinine Clearance* 119.28; Estimated Glomerular Filt Rate 133 ml/min; Glucose* 121 mg/dL (60-115); Total Protein* 7.4 g/dL (6.0-8.3)
--- NOTE | 2025-03-27 07:31 | CRLHL7_ITS ---
For Patients: As a result of the Century Cures Act, medical imaging exams and procedure reports are released immediately into your electronic medical record. You may view this report before your referring provider. If you have questions, please contact your health care provider. Indication: Pain Technique: Sonography of the abdomen was performed limited to the structures discussed below. Comparison: There are no prior studies for comparison Findings: Gallbladder wall thickness is normal at 1 millimeter. No such, calculus or pericholecystic fluid. No reported sonographic Posey`s sign. The common duct measures 3 millimeters which is normal The liver is prominent measuring 17.6 centimeters. This is probably due to a Linda`s lobe, enlarged right lobe, which is considered normal variation. Normal biliary ductal dilation. No focal mass. Normal echogenicity The pancreas as visualized appears normal. Portions are obscured by bowel gas. The right kidney is unremarkable in size and appearance measuring 12.0 x 3.9 x 5.3 centimeters. Aorta and cava as visualized appear normal. The main portal vein is patent with appropriate directional flow. Impression: No visible cause for pain. Prominent right lobe of the liver probably a Linda`s lobe. This is considered normal variation. The gallbladder appears normal. Dictated by Wander Karimi MD @ 03/27/2025 9:09:44 AM (Electronically Signed)
[2025-03-27 07:50] VITALS: BP 115/71; PULSE 72; RESP 20; O2SAT 100
[2025-03-27 07:51] LABS: PCR FLU A Negative PCR FLU A (Negative); PCR FLU B Negative PCR FLU B (Negative); SARS PCR* Negative SARS-CoV-2 (Negative)
[2025-03-27] MEDS: GI COCKTAIL (VISC LIDO/ANTACID) 30 ML PO (08:50)
== END 2025-03-27 09:43 | disposition home or self-care (01) ==
PROVIDERS: Emergency Provider Family Medicine
DX: K29.70 Gastritis, unspecified, without bleeding (principal)
CPT/HCPCS: 36415; 76705; 80048; 80076; 81001; 83690; 85025; 86140; 87086; 87636; 96361; 96374; 96375; 99284; 99285; A9270; J2270; J2405; J7030

== ENCOUNTER 2025-03-30 12:23 | Day surgery (SDC) | payer BC, MEDICAID, SELFPAY ==
[2025-03-30] VITALS (11 sets, daily range): BP systolic 101–118; BP diastolic 55–76; PULSE 62–76; RESP 12–20; TEMP 36.4–37; O2SAT 95–100; BMI 38.1
[2025-03-30] MEDS: LACTATED RINGERS 1000 ML 1,000 ML 100 ML IV ×2 (12:59→15:20)
[2025-03-30] MEDS: SODIUM CHLORIDE 0.9 % (FLUSH) 10 ML SYRINGE IVF (12:59)
[2025-03-30 13:03] LABS: Ur HCG Qualitative* Negative (Negative)
--- NOTE | 2025-03-30 13:18 | P.GSCN_ITS ---
History of Present Illness Consult details Date Seen: 03/30/25 Consult date: 03/30/25 Narrative: The patient is a 19-year-old female who presented to her primary care provider yesterday with ongoing right-sided abdominal pain. She states that over a week ago around 1:00 a.m. she woke up in the morning with severe epigastric pain. This was associated with nausea. She vomited and then was able to go back to sleep around 3:00 a.m.. She felt okay and then a week later again at 1:00 a.m. she woke up with abdominal pain and vomited but this did not help. She thought perhaps she was hungry so she tried a snack and vomited this as well. She states that the pain persisted and at 1 point she had chills. She says that the pain at this time was slightly different than before and moved to the right side as well as her back. She was seen in the emergency department here at [facility] and had an ultrasound which was normal and did not show gallstones. Labs were within normal limits though she did have a left shift of her white count. She got a GI cocktail which did seem to help but then when she got home her pain became worse ago in. She was told to follow-up with primary care provider. She saw her on Thursday and CT scan was done because of ongoing pain. This showed acute cholecystitis with possible gallstones. She states that she has had pain which has persisted but the nausea has been off and on during this time. Eating increases her nausea. Tylenol does help with the pain. 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 She is not currently working as she is 5 weeks . She does breast feed. She does not smoke or use alcohol. Non-prescribed substance use: denies use Meds Home Medications and Allergies Home Medications ?Medication ?Instructions ?Recorded ?Confirmed ?Type famotidine 40 mg tablet 40 mg PO DAILY PRN #30 tabs 03/27/25 03/30/25 Rx Allergies Allergy/AdvReac Type Severity Reaction Status Date / Time No Known Drug Allergies Allergy Verified 03/30/25 12:34 Exam Narrative: Exam Narrative: General appearance: Alert, cooperative, and in no distress Eyes: PERRLA, eye lids clear, and sclera white HENT Head: Normocephalic Ears: External ears normal Pulmonary: Breathing nonlabored on room air Cardiovascular Heart: Regular rate Extremities: warm and well perfused Gastrointestinal Abdominal: Tender in the right upper quadrant with positive Posey sign. No surgical scars. Musculoskeletal: Extremities: Upper: Both upper extremities have normal joint range of motion and intact strength. Lower: Both lower extremities have normal joint range of motion and intact strength. Skin: Normal skin color, texture, and turgor. Neurologic: No focal deficits Psychiatric: Alert, oriented, cooperative, normal affect. Const: Vital Signs, click to edit/add: Vital Signs - 24 hr 03/30/25 12:48 Temperature 98.6 F Pulse Rate 76 Respiratory Rate 20 Blood Pressure 101/58 L Pulse Oximetry 96 Oxygen Delivery Me thod Room Air Results Labs Labs: White blood cell count on 03/27/2025 was normal though she did have a left shift. On 03/27/2025 LFTs were within normal limits. Lipase was normal. CRP was less than 0.[address] scan report/results: report reviewed and image reviewed Abdominal ultrasound report/results: report reviewed and image reviewed Additional studies: Ultrasound abdomen 03/17/2025: Findings: Gallbladder wall thickness is normal at 1 millimeter. No such, calculus or pericholecystic fluid. No reported sonographic Posey`s sign. The common duct measures 3 millimeters which is normal The liver is prominent measuring 17.6 centimeters. This is probably due to a Linda`s lobe, enlarged right lobe, which is considered normal variation. Normal biliary ductal dilation. No focal mass. Normal echogenicity The pancreas as visualized appears normal. Portions are obscured by bowel gas. The right kidney is unremarkable in size and appearance measuring 12.0 x 3.9 x 5.3 centimeters. Aorta and cava as visualized appear normal. The main portal vein is patent with appropriate directional flow. Impression: No visible cause for pain. Prominent right lobe of the liver probably a Linda`s lobe. This is considered normal variation. The gallbladder appears normal. Dictated by Wander Karimi MD @ 03/27/2025 9:09:[address] abdomen/pelvis [facility] 03/29/25 COMPARISON: None. FINDINGS: Lower thorax: Normal. Liver and biliary tree: Normal. Gallbladder: Mildly thickened gallbladder wall. Possible trace pericholecystic fluid. Cholelithiasis. Spleen: Mildly enlarged measuring 13.5 centimeter (). Pancreas: Normal. Adrenal glands: Normal. Kidneys and ureters: No hydronephrosis or obstructing renal calculi. Gastrointestinal tract: Moderate stool burden is seen throughout the colon. No evidence of acute appendicitis. No evidence of bowel obstruction. Peritoneal cavity: Normal. Bladder: Normal. Pelvic organs: Normal. Vasculature: Normal. Lymph nodes: Normal. Abdominal wall: Trace fat containing periumbilical hernia. Musculoskeletal: Normal. IMPRESSION: 1. Mildly thickened gallbladder wall with possible trace pericholecystic fluid. Cholelithiasis. Consider ultrasound for further evaluation if there is concern for acute cholecystitis. 2. Mildly enlarged spleen. Please note that all CT scans at this facility use dose modulation, iterative reconstruction, and/or weight-based dosing when appropriate to reduce radiation dose to as low as reasonably achievable. Dictated by Blanco Lee MD @ 03/29/2025 11:59:47 AM Progress Note:A&P Assessment and plan (1) Cholecystitis: Status: Acute Plan The patient is a 19-year-old female with likely acute cholecystitis. CT scan seem to demonstrate gallstones, these were visualized on ultrasound. I explained to the patient that ultrasound is the most sensitive test for gallbladder pathology, however certainly 1 could have a normal gallbladder wall thickness without fluid in the early stages of the disease. I cannot explain the lack of gallstone findings, however occasionally small gallstones can be hiding in the neck of the gallbladder that can be difficult to assess on ultrasound. Regardless, her exam and CT scan does seem to show cholecystitis. She did not have evidence of biliary obstruction on her initial workup - she did not have repeat labs yesterday. I explained that the treatment for this is laparoscopic cholecystectomy. We discussed the procedure as well as risks and benefits of surgery which include bleeding, infection, bile leak, conversion to open or injury to other structures, specifically the common bile duct. We also discussed recovery. She is agreeable to proceed. We will plan on surgery today. Of note she is breast-feeding. We had a discussion on breast feeding in the perioperative period as well as with postoperative pain medications.
[2025-03-30] MEDS: PIPERACILLIN/TAZOBACTAM 3.375 GM INJ IVPB (13:50)
[2025-03-30] MEDS: BUPIVACAINE 0.25% 30 ML INJECTION (14:05)
--- NOTE | 2025-03-30 14:28 | P.ANES_ITS ---
Anesthesia Charges Start Date/Time Anesthesia Start Date: 03/30/25 Anesthesia Start Time: 13:42 Stop Date/Time Anesthesia Stop Date: 03/30/25 Anesthesia Stop Time: 15:00 Coding CPT Codes CPT Codes: ANESTH SURG UPPER ABDOMEN - 35319 ([id number]) P2 - PATIENT W/MILD SYST DISEASE, QK - TRAIN STATION SERVER 2-4 CNCRNT ANES PROC, QX - INDUSTRIAL MAINTENANCE MECHANIC SVC W/ MD MED DIRECTION
--- NOTE | 2025-03-30 14:28 | W.ANESCHARGE ---
Anesthesia Charges Start Date/Time Anesthesia Start Date: 03/30/25 Anesthesia Start Time: 13:42 Stop Date/Time Anesthesia Stop Date: 03/30/25 Anesthesia Stop Time: 15:00 Coding CPT Codes CPT Codes: ANESTH SURG UPPER ABDOMEN - 32368 ([id number]) P2 - PATIENT W/MILD SYST DISEASE, QK - GRAIN RECEIVER 2-4 CNCRNT ANES PROC, QX - ANIMAL TRAPPER SVC W/ MD MED DIRECTION
--- NOTE | 2025-03-30 15:03 | P.ANES_ITS ---
Anesthesia Charges Start Date/Time Anesthesia Start Date: 03/30/25 Anesthesia Start Time: 13:42 Stop Date/Time Anesthesia Stop Date: 03/30/25 Anesthesia Stop Time: 15:00 Coding CPT Codes CPT Codes: ANESTH SURG UPPER ABDOMEN - 46841 ([id number]) P2 - PATIENT W/MILD SYST DISEASE, QX - GRAVEL MACHINE OPERATOR SVC W/ MD MED DIRECTION, QK - BRICKLAYER HELPER 2-4 CNCRNT ANES PROC
--- NOTE | 2025-03-30 15:03 | W.ANESCHARGE ---
Anesthesia Charges Start Date/Time Anesthesia Start Date: 03/30/25 Anesthesia Start Time: 13:42 Stop Date/Time Anesthesia Stop Date: 03/30/25 Anesthesia Stop Time: 15:00 Coding CPT Codes CPT Codes: ANESTH SURG UPPER ABDOMEN - 57065 ([id number]) P2 - PATIENT W/MILD SYST DISEASE, QX - INSPECTOR AND HAND PACKAGER SVC W/ MD MED DIRECTION, QK - FORMULA CLERK 2-4 CNCRNT ANES PROC
--- NOTE | 2025-03-30 15:08 | PM.GSPRC ---
Operative Note Date of procedure: 03/30/25 Pre-op diagnosis: Acute cholecystitis Post-op diagnosis: Same Type of Procedure: Laparoscopic cholecystectomy Indications: The patient is a 19-year-old female who developed severe epigastric and right upper quadrant pain over the past week. Initial workup was negative, however her symptoms persisted and CT scan showed pericholecystic fluid and gallbladder wall thickening. I recommended cholecystectomy and after discussion of risks and benefits, she agreed to proceed. Procedure Description: After discussing the risks and benefits of the procedure, the patient signed informed consent.? The operative site was marked and the patient was brought to the operating room and placed on the operating table in supine position.? Care was taken to pad the patient's pressure points.?? The patient was then intubated by anesthesia.?? The operative site was then prepped and draped in the usual sterile fashion.? A time-out was then performed. Entrance to the abdomen was gained via a 5 mm Visiport in the left upper quadrant. The abdomen was insufflated and briefly surveyed for signs of injury. There was none. A 10 mm umbilical port was placed as well as 2 working ports along the right costal margin, all under direct vision. The patient was then placed in reverse Trendelenburg position with the right side up. The gallbladder fundus was grasped and retracted cephalad. The gallbladder was noted to be edematous and distended. The infundibulum was grasped. A combination of hook cautery and blunt dissection was used to carefully dissect out the cystic duct and artery until they could clearly be seen entering the gallbladder without any intervening structures. Cystic duct was impacted with a stone. This was pushed back into the gallbladder. There appeared to be 2 branches of the cystic artery and a larger branch more posteriorly toward the liver. The gallbladder was dissected off the cystic plate to achieve the critical view. Once this was achieved the to vascular branches were clipped with 2 clips proximal and 1 clip distal, staying on the gallbladder, with care to avoid the larger more posterior vessel. The cystic duct was then clipped with 2 clips on the patient's side and 1 clip on the specimen side. These were then divided with a scissor. The gallbladder was then taken off of the liver bed and removed from the abdomen using an Endo-Catch bag. The gallbladder bed was surveyed for hemostasis which appeared adequate. The ports were removed and the abdomen was desufflated. The umbilical port fascia was closed with 0 Vicryl. The skin was closed with absorbable subcuticular suture. Sterile dressings were then applied. Instrument sponge and needle counts were correct at the end of the case. The patient was then woken and transferred to the PACU in stable condition. The patient tolerated the procedure well. Findings: Acute cholecystitis with a stone impacted in the proximal cystic duct. Surgeon: Radha Soto MD Estimated blood loss (mL): 5 Specimen: Gallbladder Condition: stable Disposition: PACU
[2025-03-30] MEDS: HYDROCODONE-ACETAMIN 5-325 MG 1 TAB PO (15:56)
== END 2025-03-30 16:36 | disposition home or self-care (01) ==
PROVIDERS: Anesthesiology; PCP Family Medicine; Visit Provider Surgery
PROC: 0FT44ZZ Resection of Gallbladder, Percutaneous Endoscopic Approach (ICD-10-PCS; CPT 47562; principal; 2025-03-30 13:30)
DX: K80.13 Calculus of gallbladder with acute and chronic cholecystitis with obstruction (principal)
CPT/HCPCS: 47562; 00790; 81025; A9270; J0330; J0665; J1100; J1171; J1885; J2250; J2405; J2543; J2704; J2710; J3010; J7120